=== PATIENT | male | born 1945 | race Caucasian/White ===

== ENCOUNTER 2023-09-29 16:13 | Inpatient (IN) | payer MEDICARE, SELFPAY ==
[2023-09-29] VITALS (57 sets, daily range): BP systolic 106–269; BP diastolic 58–149; PULSE 85–141; RESP 2–50; TEMP 36.4–37.4; O2SAT 71–100
--- NOTE | 2023-09-29 16:15 | DI.RAD_ITS ---
Exam(s) XR PORTABLE CHEST AP EXAM: XR PORTABLE CHEST AP CLINICAL HISTORY: SOB TECHNIQUE: 2D digital imaging was performed of the chest. One image was obtained. An AP view was ob tained. COMPARISON: CR CHEST 2 VIEWS PA,LAT from 07/26/2011 FINDINGS: MEDIASTINUM: Normal. HEART: Normal. PULMONARY VASCULATURE: Normal. LUNGS: The lungs appear hyperinflated suggesting underlying COPD. Bilateral interstitial infiltrates are seen in the left perihilar region and the right lung base. PLEURAL SPACE: No pleural effusion or pneumothorax. BONE:Within normal limits for the patient's age. There is a right convex curvature of the spine. OTHER FINDINGS:Normal. IMPRESSION: 1. COPD. 2. Bilateral interstitial infiltrates in the lungs. Differential considerations include scarring, at electasis or pneumonia. Please correlate clinically. DATA REPOSITORY: RADIATION DOSE DELIVERED:
--- NOTE | 2023-09-29 16:15 | RT.EKG_ITS ---
APPROVED REPORT Exam: Resting ECG Reason for Exam: Dyspnea Patient Location: E HR:105 bpm ECG Measurements Heart Rate 105 AXIS ND 163 P 90 QRSd 90 QRS -90 QT 371 T [id number] QTc 485 Conclusion Sinus tachycardia [address] changes no stemi
[2023-09-29] MEDS: Albuterol/Ipratropium 3 ML UPD VIAL UPD ×4 (16:31→23:34)
[2023-09-29] MEDS: methylPREDNISolone SUCC 125 MG VIAL IVP (16:36)
[2023-09-29 16:44] LABS: BE (Venous) 11 mmol/L (-2-3); HCO3 (Venous) 37 mmol/L (23-28); O2 Sat (Venous) 75 %; TCO2 (Venous) 33 mmol/L (24-29); pH (Venous) 7.31 (7.31-7.41); pO2 (Venous) 46 mmHg
[2023-09-29 16:45] LABS: Abs Immature Grans 0.02 10^3/uL (0.0-0.06); Absolute Basophil Count 0.03 10^3/uL (0.0-0.2); Absolute Eosinophil Count 0.04 10^3/uL (0.0-0.7); Absolute Lymphocyte Count 0.72 10^3/uL (1.2-3.4); Absolute Monocyte Count 0.54 10^3/uL (0.1-0.8); Basophils % 0.3 %; Eosinophils % 0.4 %; HCT 53.9 % (40.0-50.0); HGB 17.3 g/dL (13.5-17.5); Immature Grans % 0.2 %; Lymphocytes % 7.4 %; MCH 29.8 pg (27.0-33.0); MCHC 32.1 % (32.0-36.0); MCV 93 fL (80-95); MPV 10.4 fL (8.0-11.0); Monocytes % 5.5 %; Neutrophils % 86.2 %; Platelet Count 255 10^3/uL (130-400); RBC 5.81 10^6/uL (4.36-5.78); RDW 13.4 % (11.8-14.1); RDW-SD 45.4 fL; WBC 9.75 10^3/uL (4.4-10.8)
--- NOTE | 2023-09-29 16:45 | RT.EKG_ITS ---
APPROVED REPORT Exam: Resting ECG Reason for Exam: SOB Patient Location: E HR:119 bpm ECG Measurements Heart Rate 119 AXIS MO 154 P 84 QRSd 107 QRS -85 QT 355 T 93 QTc 502 Conclusion Sinus tachycardia no stemi
[2023-09-29 16:46] LABS: pCO2 (Venous) 75 mmHg (41-51)
[2023-09-29] MEDS: MAGNESIUM SULFATE 2 GM/50 ML BAG IVINF (17:07)
[2023-09-29] MEDS: Albuterol/Ipratropium 3 ML UPD VIAL 9 ML UPD (17:10)
[2023-09-29 17:11] LABS: ALT 47 U/L (16-63); AST 25 U/L (15-37); Albumin 3.5 g/dL (3.4-5.0); Alkaline Phosphatase 58 U/L (46-116); Anion Gap 4.6 mmol/L (3-11); BUN 26 mg/dL (7-18); Bilirubin, Total 0.9 mg/dL (0.2-1.0); CO2 37.4 mmol/L (21.0-32.0); CREATININE 0.9 mg/dL (0.70-1.30); Calcium 9.2 mg/dL (8.5-10.1); Chloride 104 mmol/L (98-107); Estimated GFR 87.42 (mL/min/1.73m2); Glucose 133 mg/dL (74-106); Magnesium 2.3 mg/dL (1.8-2.4); NT-proBNP 2305 pg/mL (<300); Potassium 3.9 mmol/L (3.5-5.1); Sodium 146 mmol/L (136-145); Total Protein 7.3 g/dL (6.4-8.2); Troponin I < 50 ng/L (< or =60)
[2023-09-29] MEDS: LORazepam 2 MG/ML VIAL 1 MG IVP ×2 (17:17→23:52)
[2023-09-29 17:33] LABS: COVID-19 PCR Negative (Negative); Influenza A PCR Negative (Negative); Influenza B PCR Negative (Negative); RSV PCR Negative (Negative)
[2023-09-29 17:36] LABS: Source Nasopharynx
[2023-09-29 17:45] LABS: BE (Venous) 7 mmol/L (-2-3); HCO3 (Venous) 34 mmol/L (23-28); O2 Sat (Venous) 89 %; TCO2 (Venous) 30 mmol/L (24-29); pH (Venous) 7.24 (7.31-7.41); pO2 (Venous) 68 mmHg
[2023-09-29 17:48] LABS: pCO2 (Venous) 79 mmHg (41-51)
[2023-09-29] MEDS: DOXYCYCLINE 100 MG in Normal Saline 100 ML IVPB (17:54)
[2023-09-29 18:18] LABS: Procalcitonin < 0.1 ng/mL
--- NOTE | 2023-09-29 18:44 | HPE_ITS ---
Date of service: 09/29/23 Time of Service: 18:51 Assessment and Plan Assessment and plan (1) Acute exacerbation of chronic obstructive pulmonary disease (COPD): Status: Acute Assessment and plan: - Patient presented with severe shortness of breath found to have acute on chronic respiratory failure with hypoxia and hypercapnia due to an acute exacerbation of COPD -He was given nebulizer treatments, IV magnesium, IV Solu-Medrol and placed on BiPAP in the emergency department -continue prednisone 40 mg daily -Scheduled DuoNebs every 6 hours with every 2 hours as needed albuterol -Patient had improvement with IV Ativan and will continue on 1 mg every 4 hours for anxiety/work of breathing/shortness of breath -continue BiPAP therapy overnight -repeat VBG in the morning and assess if patient continues to require BiPAP (2) Acute on chronic respiratory failure with hypoxia and hypercapnia: Status: Acute Assessment and plan: - As noted above (3) Underweight: Status: Acute Assessment and plan: - May be secondary to end-stage COPD -Recommend nutrition consult for evaluation of possible protein calorie malnutrition History of Present Illness History of Present Illness Chief Complaint: SOB Narrative: 78-year-old male with past medical history of severe COPD who presents emergency department complaints of shortness of breath. According to the patient and his patient has been in his usual state of health but few days ago began to experience progressively worsening shortness of breath despite using his home inhalers and nebulizer treatments which prompted him to present to the emergency department today. He denies any lightheadedness, dizziness, chest pain, recent fevers, changes in sputum, nausea vomiting or diarrhea. In the emergency department the patient presented in severe respiratory distress with a respiratory rate in the 50's, oxygen saturation in the low 70s, and heart rate in the 120s. Patient had a VBG which showed significant acute on chronic respiratory acidosis with a pH of 7.31 and CO2 of 75 with a bicarb of 37 for which the patient was placed on BiPAP. He was also given multiple nebulizer treatments, 125 mg of IV Solu-Medrol, IV magnesium as well as Ativan which overall significantly improved his respiratory rate. Chest x-ray showed possible bilateral lower lobe infiltrates though procalcitonin was negative and emergency room physician did administer IV doxycycline. At which time emergency room physician paged hospitalist for admission for patient with acute on chronic hypercapnic hypoxic respiratory failure secondary to acute exacerbation of COPD. Review of Systems All systems reviewed & are unremarkable except as noted in HPI and below PFSH All Active Problems (Updated 09/29/23 @ 21:31 by Brendan Crane MD) Acute on chronic respiratory failure with hypoxia and hypercapnia (Acute) Acute exacerbation of chronic obstructive pulmonary disease (COPD) (Acute) Adrenal adenoma (Acute) COPD (chronic obstructive pulmonary disease) (Chronic) Sudden hearing loss (Acute) Hypertensive disorder (Chronic) Underweight (Acute) Constipation (Acute) Social History Smoking/Tobacco Use Status: Never Smoking risk assessment performed?: Yes Alcohol Intake: current Alcohol Intake frequency: holidays/special occasions only Substance use type: does not use Housing: house Meds Allergies and Home Medications Allergies Allergy/AdvReac Type Severity Reaction Status Date / Time amiodarone Allergy Unknown Other (See Verified 09/29/23 16:27 Comment) Home Medications Medication Instructions Recorded Confirmed Type fluticasone 250 mcg-salmeterol 50 1 inh inhalation BID 01/27/23 09/29/23 History mcg/dose blistr powdr for inhalation (Advair Diskus) inhalational spacing device 01/27/23 History (Aerochamber MV spacer) levalbuterol tartrate 45 2 inh inhalation Q6H 01/27/23 09/29/23 History mcg/actuation aerosol inhaler (Xopenex HFA) umeclidinium 62.5 mcg/actuation 1 inh inhalation DAILY 01/27/23 09/29/23 History blister powder for inhalation (Incruse Ellipta) Exam Narrative Exam Narrative: Chronically ill cachectic appearing older gentleman laying in bed and mild respiratory distress, BiPAP mask on, ANO x 4, heart mildly tachycardic with rates in the 100s, regular rhythm, lungs with diffuse wheezing heard throughout bilateral lung banegas, abdomen soft, nontender, nondistended Results Labs 09/30/23 05:39 09/30/23 05:39 Labs: Laboratory Results - last 24 hr 09/29/23 09/29/23 09/29/23 16:35 16:40 16:51 WBC 9.75 RBC 5.81 H Hgb 17.3 Hct 53.9 H MCV 93 MCH 29.8 MCHC 32.1 RDW 13.4 Plt Count 255 MPV 10.4 Immature Gran % 0.2 Neutrophils % 86.2 Lymphocytes % 7.4 Monocytes % 5.5 Eosinophils % 0.4 Basophils % 0.3 Nucleated RBC % 0.0 Absolute Neutrophils 8.40 H Absolute Lymphocytes 0.72 L Absolute Monocytes 0.54 Absolute Eosinophils 0.04 Absolute Basophils 0.03 VBG pH 7.31 VBG pCO2 75 H* VBG pO2 46 VBG HCO3 37 H VBG Total CO2 33 H VBG O2 Saturation 75 VBG Base Excess 11 H Sodium 146 H Potassium 3.9 Chloride 104 Carbon Dioxide 37.4 H Anion Gap 4.6 BUN 26 H Creatinine 0.9 Est GFR (CKD-EPI 2020) 87.42 Glucose 133 H Calcium 9.2 Magnesium 2.3 Total Bilirubin 0.9 AST 25 ALT 47 Alkaline Phosphatase 58 Troponin I < 50 NT-Pro-B Natriuret Pep 2305 H Total Protein 7.3 Albumin 3.5 Procalcitonin COVID-19 Source Cancelled Nasopharynx SARS-CoV-2 (PCR) Cancelled Negative Influenza Type A (PCR) Cancelled Negative Influenza Type B (PCR) Cancelled Negative RSV (PCR) Cancelled Negative 09/29/23 17:38 WBC RBC Hgb Hct MCV MCH MCHC RDW Plt Count MPV Immature Gran % Neutrophils % Lymphocytes % Monocytes % Eosinophils % Basophils % Nucleated RBC % Absolute Neutrophils Absolute Lymphocytes Absolute Monocytes Absolute Eosinophils Absolute Basophils VBG pH 7.24 L VBG pCO2 79 H* VBG pO2 68 VBG HCO3 34 H VBG Total CO2 30 H VBG O2 Saturation 89 VBG Base Excess 7 H Sodium Potassium Chloride Carbon Dioxide Anion Gap BUN Creatinine Est GFR (CKD-EPI 2020) Glucose Calcium Magnesium Total Bilirubin AST ALT Alkaline Phosphatase Troponin I NT-Pro-B Natriuret Pep Total Protein Albumin Procalcitonin < 0.1 COVID-19 Source SARS-CoV-2 (PCR) Influenza Type A (PCR) Influenza Type B (PCR) RSV (PCR) Last Vital Signs Pulse 121 H 09/29/23 17:52 Resp 25 H 09/29/23 17:52 BP 168/98 H 09/29/23 17:17 Pulse Ox 93 09/29/23 17:52 Time Spent Time spent with Patient: >75 minutes Time was spent: preparing to see the patient(eg.review tests), obtaining and/or reviewing separately otained hiistory, ordering medications,tests, procedures, referring, communicating with other health director of health care marketing, indepentently interpreting results, counseling the patient and care coordination
--- NOTE | 2023-09-29 20:45 | W.ED.GENAD ---
Discharge Plan Disposition Patient Disposition: Admit to [facility] Condition: Poor Discharge Details Chief Complaint: SOB/SuddenOnset Clinical Impression: Acute exacerbation of chronic obstructive pulmonary disease (COPD), Underweight, Acute on chronic respiratory failure with hypoxia and hypercapnia Admit Date/Time: 09/29/23 18:44 Admit Provider: Raffi Moya Attending Provider: Raffi Moya Primary Care Provider: DOROTHY DE OLIVEIRA ED Provider: Brendan Crane Discharge Data Discharge Date/Time-TO BE ENTERED AT DEPARTURE: 09/29/23 20:40 HPI General Date/Time Provider Initiated Documentation: 09/29/23 16:25. Limitations to Documentation: physical limitation. Information obtained by: patient and family. HPI Narrative: 78-year-old gentleman with past medical history of COPD and hypertension presents for evaluation of difficulty breathing. Patient is unable to provide history secondary to severe respiratory distress. His reports that he has always had COPD. They are trying to get him home oxygen, but he has not had his pulmonology appointment yet. She reports that over the last week he got a cold and has been having some congestion and this is worsening his breathing symptoms. She states that he does not want to be intubated and would not want CPR. Related Data Home Medications Medication Instructions Recorded Confirmed fluticasone 250 mcg-salmeterol 50 1 inh inhalation BID 01/27/23 09/29/23 mcg/dose blistr powdr for inhalation (Advair Diskus) inhalational spacing device 01/27/23 (Aerochamber MV spacer) levalbuterol tartrate 45 2 inh inhalation Q6H 01/27/23 09/29/23 mcg/actuation aerosol inhaler (Xopenex HFA) umeclidinium 62.5 mcg/actuation 1 inh inhalation DAILY 01/27/23 09/29/23 blister powder for inhalation (Incruse Ellipta) Allergies Allergy/AdvReac Type Severity Reaction Status Date / Time amiodarone Allergy Unknown Other (See Verified 09/29/23 16:27 Comment) General Stated Complaint: SOB/SuddenOnset LILY: 2 Exam Narrative Exam Narrative: Review of Systems: All systems reviewed & are unremarkable except as noted in HPI and below cachetic, ill appearing +severe respiratory distress, tripodding NCAT PERRL, normal conjunctiva tachycardic Severe respiratory distress with tripoding, accessory muscle use, oxygen saturations in the 70s, minimal air movement Nondistended abdomen Extremities w/o deformity, no cyanosis, no edema No rashes or lesions. no focal neurologic deficits Appropriate mood and affect Course Vital Signs Vital signs: Vital Signs Pulse 112 H 09/29/23 16:20 Respiratory Rate 50 H 09/29/23 16:20 Blood Pressure 186/102 H 09/29/23 16:20 Pulse Oximetry 71 L 09/29/23 16:20 Pulse 97 H 09/29/23 19:37 Pulse 101 H 09/29/23 19:20 Respiratory Rate 26 H 09/29/23 19:37 Respiratory Effort Short of Breath 09/29/23 16:27 Respiratory Depth Deep 09/29/23 16:27 Respiratory Pattern Normal 09/29/23 16:27 Blood Pressure 155/80 H 09/29/23 19:15 Blood Pressure Mean 105 09/29/23 19:15 Blood Pressure Position Sitting 09/29/23 16:20 Pulse Oximetry 100 09/29/23 19:37 Respiratory End-tidal CO2 28 09/29/23 16:41 Oxygen Delivery Method Bi-pap 09/29/23 17:10 Oxygen Flow Rate 0 09/29/23 16:20 Fraction of Inspired Oxygen (FIO2) 30 09/29/23 19:37 Lab/Test Results Lab/Test Results: 09/29/23 18:18 Blood Blood Culture - Pending 09/29/23 18:15 Blood Blood Culture - Pending Laboratory Tests Range/Units 09/29/23 09/29/23 09/29/23 16:35 16:40 16:51 WBC (4.4-10.8) 10^3/uL 9.75 RBC (4.36-5.78) 10^6/uL 5.81 H Hgb (13.5-17.5) g/dL 17.3 Hct (40.0-50.0) % 53.9 H MCV (80-95) fL 93 MCH (27.0-33.0) pg 29.8 MCHC (32.0-36.0) % 32.1 RDW (11.8-14.1) % 13.4 Plt Count (130-400) 10^3/uL 255 MPV (8.0-11.0) fL 10.4 Immature Gran % % 0.2 Neutrophils % % 86.2 Lymphocytes % % 7.4 Monocytes % % 5.5 Eosinophils % % 0.4 Basophils % % 0.3 Nucleated RBC % (0.0-0.3) % 0.0 Absolute Neutrophils (1.2-6.7) 10^3/uL 8.40 H Absolute Lymphocytes (1.2-3.4) 10^3/uL 0.72 L Absolute Monocytes (0.1-0.8) 10^3/uL 0.54 Absolute Eosinophils (0.0-0.7) 10^3/uL 0.04 Absolute Basophils (0.0-0.2) 10^3/uL 0.03 VBG pH (7.31-7.41) 7.31 VBG pCO2 (41-51) mmHg 75 H* VBG pO2 mmHg 46 VBG HCO3 (23-28) mmol/L 37 H VBG Total CO2 (24-29) mmol/L 33 H VBG O2 Saturation % 75 VBG Base Excess (-2-3) mmol/L 11 H Sodium (136-145) mmol/L 146 H Potassium (3.5-5.1) mmol/L 3.9 Chloride (98-107) mmol/L 104 Carbon Dioxide (21.0-32.0) mmol/L 37.4 H Anion Gap (3-11) mmol/L 4.6 BUN (7-18) mg/dL 26 H Creatinine (0.70-1.30) mg/dL 0.9 Est GFR (CKD-EPI 2020) (mL/min/1.73m2) 87.42 Glucose (74-106) mg/dL 133 H Calcium (8.5-10.1) mg/dL 9.2 Magnesium (1.8-2.4) mg/dL 2.3 Total Bilirubin (0.2-1.0) mg/dL 0.9 AST (15-37) U/L 25 ALT (16-63) U/L 47 Alkaline Phosphatase (46-116) U/L 58 Troponin I (< or =60) ng/L < 50 NT-Pro-B Natriuret Pep (<300) pg/mL 2305 H Total Protein (6.4-8.2) g/dL 7.3 Albumin (3.4-5.0) g/dL 3.5 Procalcitonin ng/mL COVID-19 Source Cancelled Nasopharynx SARS-CoV-2 (PCR) Cancelled Negative Influenza Type A (PCR) Cancelled Negative Influenza Type B (PCR) Cancelled Negative RSV (PCR) Cancelled Negative Range/Units 09/29/23 17:38 WBC (4.4-10.8) 10^3/uL RBC (4.36-5.78) 10^6/uL Hgb (13.5-17.5) g/dL Hct (40.0-50.0) % MCV (80-95) fL MCH (27.0-33.0) pg MCHC (32.0-36.0) % RDW (11.8-14.1) % Plt Count (130-400) 10^3/uL MPV (8.0-11.0) fL Immature Gran % % Neutrophils % % Lymphocytes % % Monocytes % % Eosinophils % % Basophils % % Nucleated RBC % (0.0-0.3) % Absolute Neutrophils (1.2-6.7) 10^3/uL Absolute Lymphocytes (1.2-3.4) 10^3/uL Absolute Monocytes (0.1-0.8) 10^3/uL Absolute Eosinophils (0.0-0.7) 10^3/uL Absolute Basophils (0.0-0.2) 10^3/uL VBG pH (7.31-7.41) 7.24 L VBG pCO2 (41-51) mmHg 79 H* VBG pO2 mmHg 68 VBG HCO3 (23-28) mmol/L 34 H VBG Total CO2 (24-29) mmol/L 30 H VBG O2 Saturation % 89 VBG Base Excess (-2-3) mmol/L 7 H Sodium (136-145) mmol/L Potassium (3.5-5.1) mmol/L Chloride (98-107) mmol/L Carbon Dioxide (21.0-32.0) mmol/L Anion Gap (3-11) mmol/L BUN (7-18) mg/dL Creatinine (0.70-1.30) mg/dL Est GFR (CKD-EPI 2020) (mL/min/1.73m2) Glucose (74-106) mg/dL Calcium (8.5-10.1) mg/dL Magnesium (1.8-2.4) mg/dL Total Bilirubin (0.2-1.0) mg/dL AST (15-37) U/L ALT (16-63) U/L Alkaline Phosphatase (46-116) U/L Troponin I (< or =60) ng/L NT-Pro-B Natriuret Pep (<300) pg/mL Total Protein (6.4-8.2) g/dL Albumin (3.4-5.0) g/dL Procalcitonin ng/mL < 0.1 COVID-19 Source SARS-CoV-2 (PCR) Influenza Type A (PCR) Influenza Type B (PCR) RSV (PCR) Medical Decision Making Evaluation of acute severe respiratory distress. Patient has a history of COPD, is not on home oxygen as it is not available to him at this time. He is unable to provide any history, but is at bedside and states that symptoms have been worsening over the last few days. On initial presentation the does confirm that he is DNR/DNI. He is significantly hypoxic and having severe increased work of breathing. Patient was started on bronchodilator therapy and quickly transitioned to BiPAP to support his ventilatory effort. His oxygen saturation responds quickly to FiO2. Patient was given steroids and magnesium. He was given 1 mg of Ativan to go make him more comfortable on the BiPAP and this did seem to make a significant difference and improvement in his work of breathing. Chest x-ray reveals hyperinflated lungs without any focal consolidation. Read is concerning for possible infiltrate. Though he has no leukocytosis and his procalcitonin is negative. Out of abundance of caution and the severity of disease, cultures were ordered and a dose of doxycycline was given. His VBG is concerning for some acidosis and hypercapnia. His BNP is elevated though he does not have any signs of volume overload. There is no prior echo in the system. Patient has intermittent episodes of desaturation which required the 2-minute pulse of 100% FiO2. This quickly returned his oxygen level to appropriate. At this time the patient is not ready to wean from BiPAP.. Discussed with hospitalist, the patient will be admitted to her service for further management. Medical Records Medical records reviewed: Yes I reviewed the patient's medical records. Lab Data Lab results reviewed: Yes I reviewed the patient's lab results. Quality:SDOH Health Related Social Needs: Health related social needs risk of homeless, inadequate housing, transpo insecurity, personal safety Health related social needs details difficulty getting to appts Critical Care Time Critical Care Time Critical Care Time: Yes Total Critical Care Time: 40 Attestation: CRITICAL CARE Upon my evaluation, this patient had a high probability of imminent or life-threatening deterioration due to respiratory failure which required my direct attention, intervention, and personal management. I have personally provided 40 minutes of critical care time exclusive of time spent on separately billable procedures. Time includes review of laboratory data, radiology results, discussion with consultants, and monitoring for potential decompensation. Interventions were performed as documented above [facility] All Active Problems (Updated 09/29/23 @ 21:31 by Brendan Crane MD) Acute on chronic respiratory failure with hypoxia and hypercapnia (Acute) Acute exacerbation of chronic obstructive pulmonary disease (COPD) (Acute) Adrenal adenoma (Acute) COPD (chronic obstructive pulmonary disease) (Chronic) Sudden hearing loss (Acute) Hypertensive disorder (Chronic) Underweight (Acute) Constipation (Acute) Social History Smoking/Tobacco Use Status: Never Smoking risk assessment performed?: Yes Alcohol Intake: current Alcohol Intake frequency: holidays/special occasions only Substance use type: does not use Housing: house
[2023-09-29] MEDS: Normal Saline Flush 10 ML SYR IVP (22:10)
[2023-09-30] VITALS (135 sets, daily range): BP systolic 100–175; BP diastolic 54–105; PULSE 73–122; RESP 2–32; TEMP 36.8–37.1; O2SAT 86–99
[2023-09-30 02:18] LABS: BE (Venous) 10 mmol/L (-2-3); HCO3 (Venous) 35 mmol/L (23-28); O2 Sat (Venous) 74 %; TCO2 (Venous) 31 mmol/L (24-29); pH (Venous) 7.35 (7.31-7.41); pO2 (Venous) 41 mmHg
[2023-09-30 02:19] LABS: pCO2 (Venous) 64 mmHg (41-51)
[2023-09-30] MEDS: Albuterol/Ipratropium 3 ML UPD VIAL UPD ×3 (05:12→17:05)
[2023-09-30] MEDS: LORazepam 2 MG/ML VIAL 1 MG IVP ×2 (05:15→22:09)
[2023-09-30 05:48] LABS: HGB 15.3 g/dL (13.5-17.5); MCH 29.8 pg (27.0-33.0); MCHC 31.9 % (32.0-36.0); MCV 93 fL (80-95); MPV 10.5 fL (8.0-11.0); Platelet Count 211 10^3/uL (130-400); RBC 5.14 10^6/uL (4.36-5.78); RDW 13.3 % (11.8-14.1); RDW-SD 45.6 fL; WBC 5.95 10^3/uL (4.4-10.8)
[2023-09-30 05:59] LABS: Anion Gap 5.6 mmol/L (3-11); BUN 30 mg/dL (7-18); CO2 34.4 mmol/L (21.0-32.0); CREATININE 0.7 mg/dL (0.70-1.30); Calcium 8.8 mg/dL (8.5-10.1); Chloride 105 mmol/L (98-107); Estimated GFR 94.31 (mL/min/1.73m2); Glucose 131 mg/dL (74-106); Potassium 4.2 mmol/L (3.5-5.1); Sodium 145 mmol/L (136-145)
[2023-09-30] MEDS: methylPREDNISolone SUCC 125 MG VIAL 60 MG IVP ×2 (09:14→16:53)
[2023-09-30] MEDS: Normal Saline Flush 10 ML SYR IVP ×2 (09:15→21:11)
[2023-09-30] MEDS: Enoxaparin 30 MG/0.3 ML SYR SC (09:15)
--- NOTE | 2023-09-30 09:55 | PDOC.CMIN ---
Date of service: 09/30/23 Time of Service: 09:56 Care Management Initial Assmt Initial Assessment REASON FOR HOSPITALIZATION:: acute on chronic hypercapnic respiratory failure PREVIOUS FUNCTIONAL STATUS/SOCIAL/FAMILY SUPPORTS:: Jimmy lives in [facility] with his , Myesha. 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 Iggy is originally from [place], but moved to [place] in the . He is independent with ADLs at baseline, although his health has been declining slowly over the years. CURRENT FUNCTIONAL STATUS:: Iggy was lying in bed, wearing a Bipap mask when CM met with him and his , Myesha, who was in the room visiting. Iggy was unable to participate in conversation, due to his oxygen need, but was agreeable to CM talking with Myesha in the room. Myesha stated that she has been caring for Iggy at home, but until recently he has been independent. She stated that he has had COPD for 14 years, but it wasn't until this most recent illness that he needed more support. Myesha stated that per MD, the plan will be to medically manage Iggy through the weekend, and then meet with Palliative care on Monday to discuss goals of care, and consider Iggy returning home with an admission to hospice. Myesha stated that she believes that this is what Iggy would want, to be home, but she will discuss it with him further today. Iggy is alert and oriented, but his communication is limited due to his need for Bipap and oxygen needs. He becomes very short of breath after just a few words. Per report, he is on IV steroids at this time, and is requiring ICU level of care. CM will continue to follow. ADVANCE DIRECTIVES:: Not on file. Has patient been provided with info about the portal/API?: Yes Did the patient sign up for the portal?: No CODE STATUS:: DNR/DNI INSURANCE COVERAGE / FINANCIAL ISSUES:: MCR A&B CURRENT HOME/COMMUNITY SERVICES/EQUIPMENT:: None PRIMARY CARE PHYSICIAN:: Rhonda Auguste POTENTIAL DISCHARGE NEEDS:: Evaluations for further needs; possible new home O2, HH services vs hospice at home. PATIENT/FAMILY EDUCATION NEEDS:: Review discharge instructions and limitations, discussion of self care needs including ask me three. ANTICIPATED BARRIERS TO DISCHARGE:: May need more services/support at home prior to discharge TRANSPORTATION:: Via private vehicle by his PLAN:: Anticipate Jimmy will return home with new orders for HH services vs an admission to hospice. He may require new home O2, coordinated by RT vs hospice, depending on his disposition. He will be transported home via private vehicle by his . He will follow up with his PCP and discharge plan of care. CM will continue to follow. PFSH All Active Problems (Updated 09/29/23 @ 21:31 by Brendan Crane MD) Acute on chronic respiratory failure with hypoxia and hypercapnia (Acute) Acute exacerbation of chronic obstructive pulmonary disease (COPD) (Acute) Adrenal adenoma (Acute) COPD (chronic obstructive pulmonary disease) (Chronic) Sudden hearing loss (Acute) Hypertensive disorder (Chronic) Underweight (Acute) Constipation (Acute) Social History Smoking/Tobacco Use Status: Never Smoking risk assessment performed?: Yes Alcohol Intake: current Alcohol Intake frequency: holidays/special occasions only Substance use type: does not use Housing: house SDOH(Care Management) Screening Will the Patient Participate in the Screening?: Yes Do you worry about having a steady place to live?: yes Problems where you live: inadequate lighting In the past 12 months, have you had to go without electric, gas, oil or water in your home?: no Have you or anyone in your house had to go without enough food to eat?: no Has lack of transportation kept you from medical appointments or from doing things needed for daily living?: yes Has anyone in your support network made you feel unsafe for any reason?: yes Social Determinants of Health Comments(SDOH Details): medical appts, home health help and palliative consults and hospice care in future Health Related Social Needs Health related social needs: inadequate housing(Z59.1), housing instability, housed, with risk of homelessness(Z59.811), transportation insecurity(Z59.82) and problem related to primary support group(Z63.9) Health related social needs details: difficulty getting to appts Anticipated HH Services Anticipated HH Services at Discharge [facility] Needed, DATA COMMUNICATIONS ANALYST, OT, PT and RN. Following Provider: Rhonda Auguste.
--- NOTE | 2023-09-30 10:41 | PGE_ITS ---
Date of Service Date of service: 09/30/23 Time of Service: 10:41 Assessment and Plan Assessment and plan (1) Acute exacerbation of chronic obstructive pulmonary disease (COPD): Status: Acute Assessment and plan: -Patient presented with severe shortness of breath found to have acute on chronic respiratory failure with hypoxia and hypercapnia due to an acute exacerbation of COPD -He was given nebulizer treatments, IV magnesium, IV Solu-Medrol and placed on BiPAP in the emergency department -Scheduled DuoNebs every 6 hours with every 2 hours as needed albuterol -Patient had improvement with IV Ativan and will continue on 1 mg every 4 hours for anxiety/work of breathing/shortness of breath, but ativan supply is low so will try morphine. -repeat VBG this improved hypercapnia 79->64 and pH normalized, but continues to require BiPAP to maintain oxygenation. Will consider high flow. -Not able to take oral meds this morning, resumed Solu-Medrol. -Continue possible interstitial infection, may help COPD (2) Acute on chronic respiratory failure with hypoxia and hypercapnia: Status: Acute Assessment and plan: - As noted above. BNAP up but I don't think CHF contributing clinically, consider echocardiogram or POCUS to assess. - He confirmed DNR/DNI. He does want treatment if he can get better short of intubation. - Plan palliative consult when available Monday (3) Underweight: Status: Acute Assessment and plan: - May be secondary to end-stage COPD -Recommend nutrition consult for evaluation of possible protein calorie malnutrition Subjective Subjective Patient reports: denies diarrhea, vomiting or fever Interval history since last seen: Feels okay. Understands he has bad COPD, tolerating BiPAP now, hoping he will be able to get on just oxygen. Only pain is in the left ankle, which is not new. he wasn't able to take anything orally today. Exam Narrative Exam Narrative: GEN: cachetic, ill appearing, able to speak in short phrases on BiPAP, answers questions appropriately CV: tachycardic, regular, no murmur LUNGS: Diffusely poor air movement, less in dependant right base, no rales or wheezes. ABD: non-tender, Nondistended abdomen Extremities: w/o deformity, no cyanosis, no edema Skin: No rashes or lesions. Objective Last Vital Signs Temp 37.0 C 09/30/23 07:46 Pulse 81 09/30/23 08:07 Resp 17 09/30/23 08:07 BP 155/78 H 09/30/23 07:46 Pulse Ox 96 09/30/23 08:07 Laboratory Results - last 24 hr 09/29/23 09/29/23 09/29/23 16:35 16:40 16:51 WBC 9.75 RBC 5.81 H Hgb 17.3 Hct 53.9 H MCV 93 MCH 29.8 MCHC 32.1 RDW 13.4 Plt Count 255 MPV 10.4 Immature Gran % 0.2 Neutrophils % 86.2 Lymphocytes % 7.4 Monocytes % 5.5 Eosinophils % 0.4 Basophils % 0.3 Nucleated RBC % 0.0 Absolute Neutrophils 8.40 H Absolute Lymphocytes 0.72 L Absolute Monocytes 0.54 Absolute Eosinophils 0.04 Absolute Basophils 0.03 VBG pH 7.31 VBG pCO2 75 H* VBG pO2 46 VBG HCO3 37 H VBG Total CO2 33 H VBG O2 Saturation 75 VBG Base Excess 11 H Sodium 146 H Potassium 3.9 Chloride 104 Carbon Dioxide 37.4 H Anion Gap 4.6 BUN 26 H Creatinine 0.9 Est GFR (CKD-EPI 2020) 87.42 Glucose 133 H Calcium 9.2 Magnesium 2.3 Total Bilirubin 0.9 AST 25 ALT 47 Alkaline Phosphatase 58 Troponin I < 50 NT-Pro-B Natriuret Pep 2305 H Total Protein 7.3 Albumin 3.5 Procalcitonin COVID-19 Source Cancelled Nasopharynx SARS-CoV-2 (PCR) Cancelled Negative Influenza Type A (PCR) Cancelled Negative Influenza Type B (PCR) Cancelled Negative RSV (PCR) Cancelled Negative 09/29/23 09/30/23 09/30/23 17:38 02:03 02:10 WBC RBC Hgb Hct MCV MCH MCHC RDW Plt Count MPV Immature Gran % Neutrophils % Lymphocytes % Monocytes % Eosinophils % Basophils % Nucleated RBC % Absolute Neutrophils Absolute Lymphocytes Absolute Monocytes Absolute Eosinophils Absolute Basophils VBG pH 7.24 L Cancelled 7.35 VBG pCO2 79 H* Cancelled 64 H* VBG pO2 68 Cancelled 41 VBG HCO3 34 H Cancelled 35 H VBG Total CO2 30 H Cancelled 31 H VBG O2 Saturation 89 Cancelled 74 VBG Base Excess 7 H Cancelled 10 H Sodium Potassium Chloride Carbon Dioxide Anion Gap BUN Creatinine Est GFR (CKD-EPI 2020) Glucose Calcium Magnesium Total Bilirubin AST ALT Alkaline Phosphatase Troponin I NT-Pro-B Natriuret Pep Total Protein Albumin Procalcitonin < 0.1 COVID-19 Source SARS-CoV-2 (PCR) Influenza Type A (PCR) Influenza Type B (PCR) RSV (PCR) 09/30/23 05:39 WBC 5.95 RBC 5.14 Hgb 15.3 D Hct 48.0 MCV 93 MCH 29.8 MCHC 31.9 L RDW 13.3 Plt Count 211 MPV 10.5 Immature Gran % Neutrophils % Lymphocytes % Monocytes % Eosinophils % Basophils % Nucleated RBC % Absolute Neutrophils Absolute Lymphocytes Absolute Monocytes Absolute Eosinophils Absolute Basophils VBG pH VBG pCO2 VBG pO2 VBG HCO3 VBG Total CO2 VBG O2 Saturation VBG Base Excess Sodium 145 Potassium 4.2 Chloride 105 Carbon Dioxide 34.4 H Anion Gap 5.6 BUN 30 H Creatinine 0.7 Est GFR (CKD-EPI 2020) 94.31 Glucose 131 H Calcium 8.8 Magnesium Total Bilirubin AST ALT Alkaline Phosphatase Troponin I NT-Pro-B Natriuret Pep Total Protein Albumin Procalcitonin COVID-19 Source SARS-CoV-2 (PCR) Influenza Type A (PCR) Influenza Type B (PCR) RSV (PCR) Time Spent with Patient Time Spent with Patient: >50 minutes Time was spent: preparing to see the patient(eg.review tests), obtaining and/or reviewing separately otained hiistory, ordering medications,tests, procedures, referring, communicating with other health field care coordinator, indepentently interpreting results, counseling the patient and care coordination
[2023-09-30] MEDS: MORPHine 2 MG/ML SYR IVP ×3 (10:51→21:12)
[2023-09-30] MEDS: DOXYCYCLINE 100 MG in Normal Saline 100 ML IVPB (14:31)
[2023-09-30] MEDS: Milk of Magnesia 30 ML CUP PO (21:59)
[2023-10-01] VITALS (82 sets, daily range): BP systolic 131–180; BP diastolic 71–107; PULSE 76–100; RESP 4–24; TEMP 36.9–37; O2SAT 87–99
[2023-10-01] MEDS: methylPREDNISolone SUCC 125 MG VIAL 60 MG IVP (00:03)
[2023-10-01] MEDS: MORPHine 2 MG/ML SYR IVP ×6 (01:53→23:00)
[2023-10-01] MEDS: DOXYCYCLINE 100 MG in Normal Saline 100 ML IVPB (01:54)
[2023-10-01] MEDS: Normal Saline Flush 10 ML SYR IVP ×3 (06:29→19:16)
[2023-10-01] MEDS: Enoxaparin 30 MG/0.3 ML SYR SC (08:49)
[2023-10-01] MEDS: Pantoprazole 40 MG TABCR PO (08:49)
[2023-10-01] MEDS: predniSONE 20 MG TAB 40 MG PO (08:51)
--- NOTE | 2023-10-01 09:57 | PGE_ITS ---
Date of Service Date of service: 10/01/23 Time of Service: 09:57 Assessment and Plan Assessment and plan (1) Acute exacerbation of chronic obstructive pulmonary disease (COPD): Status: Acute Assessment and plan: change DuoNeb to qid,continue prn albuteroal, addd Spiriva, consult pulmonary service tomorrow, add acapella/vibrapep; attempt sputum culture, continue bipap at night and prn fatigue; otherwise continue NC during the day; attempt mobilization/P.T. consult; needs updated PFT once he has recovered from this acute event. Be sure his vaccines are up to date. (2) Acute on chronic respiratory failure with hypoxia and hypercapnia: Status: Acute (3) Underweight: Status: Acute Assessment and plan: involuntary weight loss, he says 10 lbs but he appears to have lost more than this. palliative and nutritional consults have been requested. I have added protein supplements. Subjective Subjective Interval history since last seen: Patient w/ moist, non-productive cough. Dyspnea is improving. Was on BIPAP yesterday but has been on NC overnight. Now on 1 lpm. Not dyspneic at rest but still gets dyspneic w/ any activity. Also notes some intermittent epigastric discomfort w/ meals. He gives hx of worsening dyspneic, cough and fevers to 101 that preceded his hospitalization by several days. He has been afebrile t hroughout this hospitalization an has had no leukocytosis. So far he has not been able to produce any sputum. I have ordered Acapella/Vibrapep. He has been on solumedrol (which I have switched to prednisone) and he is on Duoneb q6hr and albuterol q2h prn. He has not been on home oxygen. He has not seen pulmonary as outpatient but states that he had been scheduled to see Dr. Mora but became ill and was hospitalized before he could see ehr. Exam Narrative Exam Narrative: Very thin, elderly white male, sitting up in bed, attempting to eat breakfast, moist cough but not able to mobilized anything LUngs: diffusely diminished breath sounds w/ prolonged expiratory phase, no rhonchi or wheezing Heart: RRR, no murmur or rub Abdomen: scaphoid, soft, nontender Extremities: no cyanosis or edema, feet warm and dry, promient callous over right lateral 5th metatarsal but no open ulcer; pedal pulses present Objective Last Vital Signs Temp 37.0 C 10/01/23 08:25 Pulse 80 10/01/23 08:01 Resp 21 10/01/23 09:50 BP 152/87 H 10/01/23 08:01 Pulse Ox 90 L 10/01/23 09:50 Time Spent with Patient Time Spent with Patient: 35-49 minutes Time was spent: preparing to see the patient(eg.review tests), ordering medications,tests, procedures, referring, communicating with other health neonatal critical care nurse, indepentently interpreting results, counseling the patient and care coordination
[2023-10-01] MEDS: Azithromycin 250 MG TAB 500 MG PO (10:57)
--- NOTE | 2023-10-01 11:30 | DI.CT_ITS ---
Exam(s) CT CHEST WO EXAM: CT CHEST WO CLINICAL HISTORY: COPD. TECHNIQUE: Imaging protocol: Axial computed tomography images were obtained and coronal and sagittal reformatted images were created and reviewed. COMPARISON: CT CHEST WITH CONTRAST from 03/31/2010 CR XR PORTABLE CHEST AP from 09/29/2023 FINDINGS: The examination is limited due to patient motion artifact. Tracheobronchial tree: There are mild bronchiectatic changes in the right lower lobe. There is mild bronchial wall thickening seen in the right lower lobe. Pulmonary parenchyma: There are marked centrilobular emphysematous changes present. There is scarrin g in the lung apices particularly on the right. There is an opacity in the dependent portion of the right lower lobe. Mediastinum and Iqra: No dominant adenopathy or fluid collection. The esophagus is unremarkable.In th e lower medial aspect of the right hemithorax, there is a fluid attenuation lesion measuring 4.0 x 2. 4 by 5 cm. This was not present on prior examinations. Thyroid gland: Unremarkable. Pleura: There is a small right pleural effusion and a small left pleural effusion. No pneumothorax. Heart: The heart is not dilated. Coronary artery calcification is present. There is a question of a small pericardial effusion versus motion artifact. Aorta: Thoracic aorta non-dilated. Atherosclerotic calcification is present. Upper abdomen: Left nephrolithiasis. There is again seen a hypodense right adrenal nodule likely re flecting an adenoma. Lymph nodes: Within normal limits. Soft tissues: Unremarkable. Bones:Within normal limits for the patient's age. IMPRESSION: 1. Severe emphysematous changes in the lungs. Right lower lobe bronchiectasis. 2. Infiltrate in the right lung base which may represent atelectasis or pneumonia. 3. Small bilateral pleural effusions. 4. 4.0 x 2.4 x 5 cm fluid attenuation lesion in the medial aspect of the right hemithorax. This may represent a mediastinal cyst. Abscess or loculated pleural effusion cannot be excluded. RADIATION DOSE DELIVERED: 363.77mGy.cm Total DLP 363.77mGy.cm Total DLP DATA REPOSITORY: All CT scans at this facility are submitted to the National Radiology Data Registry (NRDR) Dose Index Registry (DIR) with the [employer] (ACR). RADIATION OPTIMIZATION: All CT scans at this facility use at least one of these dose optimization te chniques: automated exposure control; mA and/or kV adjustment per patient size (includes targeted exa ms where dose is matched to clinical indication); or iterative reconstruction.
[2023-10-01] MEDS: Albuterol/Ipratropium 3 ML UPD VIAL UPD (11:46)
--- NOTE | 2023-10-01 14:22 | DI.VRAD_ITS ---
PROCEDURE INFORMATION: Exam: CT Chest Without Contrast; Diagnostic Exam date and time: 10/01/2023 12:51 PM Age: 78 years old Clinical indication: Other: Copd TECHNIQUE: Imaging protocol: Diagnostic computed tomography of the chest without contrast. 3D rendering (Not supervised by radiologist): MIP and/or 3D reconstructed images were created by the technologist. COMPARISON: CR XR PORTABLE CHEST AP 09/29/2023 4:50 PM FINDINGS: Thyroid: The thyroid gland is normal. Lungs: Severe centrilobular emphysema. There is bronchiectasis in the right. There is likely mucous plugging resulting in peripheral atelectasis of the right costophrenic angle. Pleural spaces: Unremarkable. No pneumothorax. No pleural effusion. Heart: No cardiomegaly or pericardial effusion. There are coronary artery calcifications. Mediastinal space: The right costovertebral angle in the mediastinum has an ovoid slightly decreased attenuation well-circumscribed area measuring 5.0 cm craniocaudally and up to 2.8 cm in diameter. This may be a cyst within the mediastinum. Further characterization could be made with CT or MRI examination. Lymph nodes: Unremarkable. No enlarged lymph nodes. Vasculature: No aneurysm. Moderate amount of calcification within the wall of the aorta. Bones/joints: No acute fracture. Mild degenerative changes of the spine. No spondylolisthesis. Pectus excavatum defect. Soft tissues: Unremarkable. IMPRESSION: 1. Severe centrilobular emphysema. Minimal bronchiectasis in the right lower with probable mucous plugging and postobstructive atelectasis of the costophrenic angle. 2. 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 Dictated and Authenticated by: Farshad Aguilar MD. Ordering:[facility] Piotr Raines MD
[2023-10-01] MEDS: diazePAM 10 MG/2 ML SYR 2 MG IVP ×2 (15:42→19:15)
[2023-10-01] MEDS: Budesonide/Formoterol 160/4.5 6 GM 60 PUFF INH IH (19:40)
[2023-10-02] VITALS (33 sets, daily range): BP systolic 127–168; BP diastolic 84–108; PULSE 64–86; RESP 2–19; TEMP 36.4–37.1; O2SAT 89–100
[2023-10-02] MEDS: diazePAM 10 MG/2 ML SYR 2 MG IVP ×5 (00:27→23:15)
[2023-10-02] MEDS: Normal Saline Flush 10 ML SYR IVP ×9 (00:27→23:18)
[2023-10-02] MEDS: MORPHine 2 MG/ML SYR IVP ×6 (02:51→22:08)
[2023-10-02] MEDS: Albuterol 2.5 MG/3 ML INH SOLN VIAL UPD (02:52)
--- NOTE | 2023-10-02 07:30 | W.PULMCON ---
General Date Of Service Date of service: 10/02/23 Time of Service: 07:30 Reason for Consult: COPD Exacerbation Assessment and Plan Assessment and plan (1) Acute on chronic respiratory failure with hypoxia and hypercapnia: Status: Acute (2) Acute exacerbation of chronic obstructive pulmonary disease (COPD): Status: Acute (3) Pulmonary cachexia due to COPD: Status: Acute Assessment and plan: This is a 78 yo admitted for a COPD exacerbation. At home he is maintained on Advair and Incruse, which he can be discharged on as well. I do recommend he be discharged with a nebulizer with levalbuterol-ipatropium q4hrs prn. Given his lack of smoking and no known inhalational exposures, I do recommend an alpha [address] CT is signficiant for apically predominant bullous emphysema. I recommend against further BiPAP usage to ensure he tolerates 24 hours without this therapy prior to D/C. I will see him in follow up and reassess his need for NIV as an outpatient, given the hypercapnea. COPD Exacerbation - prednisone taper: 40mg for 5 days, 30mg for 3 days, 20mg for 3 days, 10mg for 3 days, 5mg for 3 days - azithromycin for 5 days - discharge on home Advair and Incruse - discharge on prn levalbuterol - discharge with levalbuterol-ipatropium nebs and machine - pulmonary follow up to be arranges - alpha 1 anti-trypsan level given insignificant smoking history Acute hypoxic and hypercapnic respiratory failure - stop BiPAP - assess stability on nasal cannula for 24 hours - will reassess NIV need as an outpatient - ambulatory pulse ox to determine O2 needs prior to D/C Pulmonary cachexia - will assess needs as an outpatient History of Present Illness Narrative: This is a 78 yo admitted for a COPD exacerbation. He present with hypoxic and hypercapnic respiratory failure and has been treated with nebs, azithromycin, prednisone, O2 and BiPAP. It does appear as though he is a chronic CO2 retainer. He is feeling better than when he initially presented. He has prior PFT's from 2010 which find very severe airflow obstruction: Spirometry Date FEV1/FVC LLN FEV1 % LLN FVC % LLN Comments 05/27/2010 26 63 0.82 21 3.22 3.17 61 4.31 No BD Date TLC % LLN RV % DLCO LLN sGaw % Pressures 05/27/10 6.22 82 6.09 3.23 130 11.19 29.10 0.08 41 He has a insignificant smoking history and denies any respiratory exposures. 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 He feels as though the O2 helps his breathing. Review of Systems All systems reviewed & are unremarkable except as noted in HPI and below PFSH All Active Problems (Updated 10/02/23 @ 08:46 by Sharmaine Mora MD) Pulmonary cachexia due to COPD (Acute) Acute on chronic respiratory failure with hypoxia and hypercapnia (Acute) Acute exacerbation of chronic obstructive pulmonary disease (COPD) (Acute) Adrenal adenoma (Acute) COPD (chronic obstructive pulmonary disease) (Chronic) Sudden hearing loss (Acute) Hypertensive disorder (Chronic) Underweight (Acute) Constipation (Acute) Social History Smoking/Tobacco Use Status: Never Smoking risk assessment performed?: Yes Alcohol Intake: current Alcohol Intake frequency: holidays/special occasions only Substance use type: does not use Housing: house Visit Medication and Allergies Active Medications Generic Name Dose Route Start Last Admin Trade Name Freq PRN Reason Stop Dose Admin Acetaminophen 0 mg 09/29/23 21:24 Acetaminophen 325 Mg Tab PO Q4H PRN PRN Albuterol Sulfate 2.5 mg 09/29/23 21:24 10/02/23 02:52 Albuterol 2.5 Mg/3 Ml Inh Soln Vial UPD 2.5 mg Q2H PRN PRN Administration Albuterol/Ipratropium 3 ml 10/01/23 11:44 10/01/23 11:46 Albuterol/Ipratropium 3 Ml Upd Vial UPD 3 ml Q4H PRN PRN Administration Azithromycin 250 mg 10/02/23 08:30 Azithromycin 250 Mg Tab PO DAILY TAMIKO Budesonide/Formoterol Fumarate 2 puff 10/01/23 20:00 10/01/23 19:40 Budesonide/Formoterol 160/4.5 6 Gm 60 Puff Inh IH 2 puffs BID TAMIKO Administration Diazepam 2 mg 10/01/23 14:41 10/02/23 00:27 Diazepam 10 Mg/2 Ml Syr IVP 2 mg Q4H PRN PRN Administration Docusate Sodium 100 mg 09/29/23 21:24 Docusate Sodium 100 Mg Cap PO TID PRN PRN Enoxaparin Sodium 30 mg 09/30/23 08:30 10/01/23 08:49 Enoxaparin 30 Mg/0.3 Ml Syr SC 30 mg DAILY TAMIKO Administration IV Miscellaneous Supplies 1 each 09/29/23 16:30 Iv Access-Emergency Dept IV DIRECTED TAMIKO Lorazepam 1 mg 09/29/23 21:24 09/30/23 22:09 Lorazepam 2 Mg/Ml Vial IVP 1 mg Q4H PRN PRN Administration Magnesium Hydroxide 30 ml 09/29/23 21:24 09/30/23 21:59 Milk Of Magnesia 30 Ml Cup PO 30 ml DAILY PRN PRN Administration Morphine Sulfate 2 mg 09/30/23 10:16 10/02/23 06:39 Morphine 2 Mg/Ml Syr IVP 2 mg Q2H PRN PRN Administration Multi-Ingredient Supplement 1 ounce 10/01/23 14:00 10/01/23 19:54 Protein Nutritional Supplement 16 Gm 1 Ounce Packet PO Not Given TID TAMIKO Pantoprazole Sodium 40 mg 10/01/23 07:30 10/01/23 08:49 Pantoprazole 40 Mg Tabcr PO 40 mg DAILY@0730 TAMIKO Administration Polyethylene Glycol 17 gm 09/29/23 21:24 Polyethylene Glycol 3350 17 Gm Packet PO DAILY PRN PRN Constipation Prednisone 40 mg 10/01/23 08:30 10/01/23 08:51 Prednisone 20 Mg Tab PO 40 mg DAILY TAMIKO Administration Sodium Chloride 0 ml 09/29/23 16:25 10/02/23 02:57 Normal Saline Flush 10 Ml Syr IVP 10 ml PRN PRN Administration Sodium Chloride 0 ml 09/29/23 20:00 10/01/23 19:16 Normal Saline Flush 10 Ml Syr IVP 10 ml BID TAMIKO Administration Sodium Chloride 0 ml 09/29/23 16:25 Normal Saline 10 Ml Vial IJ DIRECTED PRN Umeclidinium [place] 0 cap 10/01/23 11:00 10/01/23 13:30 Umeclidinium 7 Cap Inhaler IH Not Given DAILY TAMIKO Allergies amiodarone Allergy (Unknown, Verified 09/29/23 16:27) Other (See Comment) Exam Narrative Exam Narrative: Gen: mild respiratory distress, cachectic, speaks in 5 word sentences before needing a breahting break HENT: PERRL Chest: No respiratory distress, normal appearance of chest, clear to auscultation bilaterally, no crackles or wheezes, normal inspiratory effort Heart: regular rate and rhythym, no murmurs, rubs or gallops Abdomen: Non-distended, soft, non tender Extremities: No clubbing, edema, cyanosis, rashes Neuro: AAOx3 , non focal Psych: cooperative, appropriate mental affect Results Last Vital Signs Temp 36.7 C 10/02/23 06:39 Pulse 71 10/02/23 05:53 Resp 12 10/02/23 06:00 BP 145/84 H 10/02/23 05:53 Pulse Ox 93 10/02/23 06:00 Labs 09/30/23 05:39 09/30/23 05:39
[2023-10-02] MEDS: Budesonide/Formoterol 160/4.5 6 GM 60 PUFF INH IH ×2 (07:39→20:36)
[2023-10-02] MEDS: Umeclidinium 7 CAP INHALER IH (07:39)
[2023-10-02] MEDS: Levalbuterol 1.25 MG/3 ML UPD VIAL UPD ×2 (07:54→20:33)
[2023-10-02] MEDS: Enoxaparin 30 MG/0.3 ML SYR SC (08:00)
[2023-10-02] MEDS: Pantoprazole 40 MG TABCR PO (08:01)
[2023-10-02] MEDS: Azithromycin 250 MG TAB PO (08:01)
[2023-10-02] MEDS: predniSONE 20 MG TAB 40 MG PO (08:01)
[2023-10-02] MEDS: Protein Nutritional Supplement 16 GM 1 OUNCE PACKET PO ×2 (08:02→19:20)
--- NOTE | 2023-10-02 08:14 | W.PM.PROGNOT ---
Date of Service Date of service: 10/02/23 Time of Service: 08:14 Assessment and Plan Assessment and plan (1) Acute exacerbation of chronic obstructive pulmonary disease (COPD): Status: Acute Assessment and plan: continue Symbicort, and Incruse Ellipta, Duoneb on prn basis, encourage use of acapella, continue azithromycin for antiinflammatory effect and empiric treatment of acute bronchitis, continue prednisone; encourage him to get out of bed/ambulate; will dc his santillan catheter to improve mobility/transfers; already have consulted w/ P.T. and nutrition and palliative care; appreciate Dr. Mora's input. will get alpha 1 AT level. (2) Acute on chronic respiratory failure with hypoxia and hypercapnia: Status: Acute Assessment and plan: wean oxygen as tolerated. trial off bipap tonight. continue to monitor his SPO2 but does not need telemetry (3) Underweight: Status: Acute Assessment and plan: I have added protein supplements, MVS and requested nutritional consult. Subjective Subjective Interval history since last seen: Jimmy states that he feels so so. Overall he has improved. He is down to 1 lpm NC w/ SPO2 of 97%. He did wear the BIPAP for couple hours last night. We will trial him off BIPAP. Patient relates that his respiratory problems initially began in 2009 after he was hospitalized for bowel obstruction and developed HAP and since that time he has been diagnosed w/ COPD although no formal evaluation by pulmonary. His CT w/o contrast yesterday confirmed he has bullous emphysema, centrilobular. Dr. Mora has seen the patient and we will get alpha 1 antitrypsin level. Exam Narrative Exam Narrative: Elderly male who appears cachectic, he is able to speak in complete sentences w/out severe dyspnea, he has moist cough Lungs: diffusely diminished breath sounds, no rhonchi or wheezing Heart: RRR, no mumur, rub or gallop chest wall: pectus excavatum Abdomen: scaphoid, nontender, normal bowel sounds Extremities: no edema Objective Last Vital Signs Temp 36.7 C 10/02/23 06:39 Pulse 81 10/02/23 08:04 Resp 14 10/02/23 08:04 BP 155/85 H 10/02/23 07:40 Pulse Ox 97 10/02/23 08:00 Time Spent with Patient Time Spent with Patient: 35-49 minutes Time was spent: preparing to see the patient(eg.review tests), obtaining and/or reviewing separately otained hiistory, ordering medications,tests, procedures, referring, communicating with other health healthcare insurance sales agent, indepentently interpreting results, counseling the patient and care coordination
[2023-10-02] MEDS: guaiFENesin 600 MG TABCR PO ×2 (09:27→19:21)
[2023-10-02] MEDS: Multivitamin TAB 1 TAB PO (09:27)
[2023-10-02] MEDS: Milk of Magnesia 30 ML CUP PO (09:34)
[2023-10-02] MEDS: Docusate Sodium 100 MG CAP PO (09:34)
--- NOTE | 2023-10-02 14:35 | IN_ITS ---
Date of service: 10/02/23 Time of Service: 14:05 PT Notes Visit Reasons: Acute on chronic hypercapnic respiratory failure Date: 10/02/23 Referring Doctor: Olu Saldaña PT Orders: PT CONSULT: Exacerbation chronic COPD Precautions: Standard, fall risk Patient Profile/Admitting Diagnosis: 78 yo male presenting to ER on 09/29/23 w shortness of breath, medical work up confirming chronic respiratory failure with hypoxia and hypercapnia. Prior to admission he was no on Oxygen supplementation, currently utilizing NC oxygen support 1L at rest, increasing with activity. Social History/Home Situation: Lives in a 2 story private home with his . No bathroom on second floor with bedroom. He has one step to enter home with rail. He does not use AD at baseline, is using walker presently. He is retired. Equipment Owned/DME: JON Subjective: He walked with nursing this morning length of hallways with either 2-3L of NC O2 supplementation. He required use of RW due steady himself, he would have fallen without it. He felt strong aside from his breathing and poor balance. He denies pain, just very winded. He has to stand before doing any activity to improve his breathing control. Objective: General Observation: Lying in hospital, NC of 1L O2, increases to 2L O2 with activity. Appears slight distress only due to breathing difficulty Mental Status: A&Ox3 Vitals: O2 on 1L sedentary 90%, drops to 85% with standing x 1 min. Increase O2 to 2L, recovers to 92% and remains here with 2L for rest of evaluation. RN left with patient to adjust O2 as needed. ROM: Right Upper Extremity: WFL Left Upper Extremity: WFL Right Lower Extremity: WFL Left Lower Extremity:WFL Strength: Right Upper Extremity: 3+/5 grossly Left Upper Extremity: 3+/5 grossly Right Lower Extremity: 4/5 grossly Left Lower Extremity: 4/5 grossly Bed Mobility/Transfers: All with NC O2 supplementation of 2L with activity. Bed mobility: Independent Supine 45 deg HOB to EOB Independent Stand at RW x 3 min, CG Bed <> chair, RW, CG - required 5 min rest between. Ambulated prior with nursing length of hallways which is about 100 ft, w RW, I did not observe this, and I did not repeat given patient fatigue and difficulty with O2 absorption post all this activity. Currently receiving Valium at time of my evluation. Gait: RW, CG - 100 ft with nursing, NC O2 2-3L Balance: Static Sitting: Good Dynamic Sitting: Good Static Standing: Fair at RW Dynamic Standing: Fair at RW Stage 4 Balance Test Time (seconds) Feet together 10 Partial tandem 3 Tandem unable One foot unable Special Tests: Mobility Limitations Standardized Measure [facility] AM-PAC 6 clicks Basic Mobility Inpatient Short Form: 42% disability Informed Consent/Education: Patient instructed in purpose of PT consult and plan of care. Treatment: Initial evaluation 42007 Advised in diaphragmatic belly breathing technique Assessment: Patient is a 78 year old male referred to physical therapy services with reason for PT evaluation with admitted diagnosis of COPD exacerbation with respiratory failure, recently having been transferred to the floor from ICU due to improvments. Now dependent on 1LO2 at rest, 2LO2 with activity. Patient presents with with strength, balance, and gait impairments related to acute medical issues. She requires skilled PT intervention to maximize safety mobility to allow for safe transition home once medically stable, and attend to below deficits. Anticipate return home with O2 supplementation Impairment level findings: Dependent on O2 supplementation for activity Global weakness Poor balance Global muscle atrophy Poor breathing motor control Impairments are contributing to the following functional limitations: CGA, RW, and O2 supplementation for transfers, ambulation and to prevent falls Unable to climb stairs as his home requires Poor household level endurance ability for safe ADL's and self care [facility] 42% disability Patient is assessed as moderate complexity based on the following: History: All Active Problems (Updated 09/29/23 @ 21:31 by Brendan Crane MD) Acute on chronic respiratory failure with hypoxia and hypercapnia (Acute) Acute exacerbation of chronic obstructive pulmonary disease (COPD) (Acute) Adrenal adenoma (Acute) COPD (chronic obstructive pulmonary disease) (Chronic) Sudden hearing loss (Acute) Hypertensive disorder (Chronic) Underweight (Acute) Constipation (Acute) Examination: impairment and functional limitations as noted above Presentation: Evolving Decision Making: Easy Goals: Goals X1 week 1. Supine-Sit : Independent 1LO2 2. Sit-Supine : Independent 1LO2 3. Sit-Stand : SBA, RW, 1LO2 4. Stand-Sit : SBA, RW, 1L O2 5. Bed-Chair : SBA, RW, 1LO2 6. Chair-Bed : SBA, RW, 1LO2 7. Gait : 200 feet, RW, supervision, 1L O2 with stable oxygen saturation 8. Stairs : 10, 1 rail, CGA, 1 L O2 9. 10 sec tandem stance, 5 sec SLS with mild RW assist. Plan of Care/Treatment Plan: 1-2x/day, 7 days/week x 1 week. Plan of care has been reviewed with the INSURANCE VERIFICATION CLERK providing the service under Physical Therapy direction. Initiate Physical Therapy intervention for strengthening, bed mobility, transfers, gait, stairs, balance training, use of assistive device. DISCHARGE RECOMMENDATIONS: Patient will require RW at time of discharge to prevent falls and to allow for stability assist given current balance impairment. Recommend home health PT services TREATMENT CODE/TIME: 09625, 30 min Glo Bautista, [facility]
--- NOTE | 2023-10-02 14:52 | W.NUTCONSULT ---
Date of service: 10/02/23 Time of Service: 14:53 Nutritional Consult ASSESSMENT: pt is a 78yo male Admitted after being SOB and found to have acute on chronic resp failure. Pt with PMH of COPD, Adrenal adenoma, constipation. He is currently underwieght with a BMI of 13.5kg/m2 - although height appears inaccurate at 74 with 6ft and 5'11'' being in his recent history. Either way, patient is cachexic in appearance upon visit, reporting not eating much at all since monday. States he lost 10-12 pounds within the last year - states he was fasting for wt loss but went overobard.Noted is a 1.8kg wt loss x3 days (3.7%bosy weight loss). Pt with very loose fitting dentures which continued to fall out of place throughout our conversation. States he usually eats organic, takes vitamin B, C and Curcumin at home. Pt ordered for regular diet with normal consistencies, as well as liquid protein concentrate TID and MVI . PT declines traditional medical ONS but open to homemade smoothie with whey protein. estimated nutr needs: 1605 (1800 rec for wt gain), 71g protein (1.5g.kg current wt) NUTRITIONAL DIAGNOSIS: Inadequate energy intake (NI-1.4) related to lower po intake with increased kcal expenditure due to COPD, as evidenced by significant weight loss over the last year - reported as 10-12 pounds. INTERVENTION: Will provide 8oz whey protein smoothies at breakfast and lunch to supply an additional 412 kcals and 38g protein, in addition to the liquid protein TID supplyinjg 45g protein. totaol of 83g protein available as supplement to po intake at meals and snacks. PT may benefit from appetite stimulant - recommend megestrol to see if it helps Will alert kitchen to guide in ordering to softer foods due to loose fitting dentures. MONITORING AND EVALUATION: will monitor wt, intake, labs and ability to maintain adequate po kcals. Time Spent in Nutritional Counseling and Treatment: 15 minutes
--- NOTE | 2023-10-02 16:29 | PDOC.CMPRO ---
Date of service: 10/02/23 Time of Service: 16:29 Care Management Progress Note Progress Note Text Progress Note Text: S/O: Jimmy was sleeping when CM attempted to meet with him. CM called his , Myesha, and was not successful connecting with her. Per report, Jimmy has improved significantly since his admission. He is now on 1LO2 NC with SPO2 of 97%. MD plans to wean him off Bipap overnight, if possible. Palliative was not available to meet with him today, but will plan to see him tomorrow, if their schedule allows. Over the weekend, Jimmy was not doing well, and CM and MD had discussed hospice support at home. Per MD, he is doing much better now, but will still meet with palliative to discuss his goals of care. CM will continue to follow. A: Jimmy is a 78 year old male admitted to [facility] on 09/29/23 with acute on chronic hypercapnic respiratory failure. P: Anticipate Jimmy will return home with new orders for HH services vs an admission to hospice. He may require new home O2, coordinated by RT vs hospice, depending on his disposition. He will be transported home via private vehicle by his . He will follow up with his PCP and discharge plan of care. CM will continue to follow. SDOH(Care Management) Screening Will the Patient Participate in the Screening?: Yes Do you worry about having a steady place to live?: yes Problems where you live: inadequate lighting In the past 12 months, have you had to go without electric, gas, oil or water in your home?: no Have you or anyone in your house had to go without enough food to eat?: no Has lack of transportation kept you from medical appointments or from doing things needed for daily living?: yes Has anyone in your support network made you feel unsafe for any reason?: yes Social Determinants of Health Comments(SDOH Details): medical appts, home health help and palliative consults and hospice care in future Health Related Social Needs Health related social needs: inadequate housing(Z59.1), housing instability, housed, with risk of homelessness(Z59.811), transportation insecurity(Z59.82) and problem related to primary support group(Z63.9) Health related social needs details: difficulty getting to appts
[2023-10-02] MEDS: Albuterol/Ipratropium 3 ML UPD VIAL UPD (17:15)
[2023-10-03] VITALS (9 sets, daily range): BP systolic 131–154; BP diastolic 76–90; PULSE 70–95; RESP 8–17; TEMP 36.1–36.2; O2SAT 83–100
[2023-10-03] MEDS: MORPHine 2 MG/ML SYR IVP ×3 (00:39→14:07)
[2023-10-03] MEDS: Normal Saline Flush 10 ML SYR IVP ×5 (00:40→20:31)
[2023-10-03] MEDS: diazePAM 10 MG/2 ML SYR 2 MG IVP (05:16)
[2023-10-03 07:01] LABS: Abs Immature Grans 0.02 10^3/uL (0.0-0.06); Absolute Lymphocyte Count 0.58 10^3/uL (1.2-3.4); Absolute Monocyte Count 0.64 10^3/uL (0.1-0.8); Absolute Neutrophil Count 5.49 10^3/uL (1.2-6.7); HCT 47.1 % (40.0-50.0); HGB 14.8 g/dL (13.5-17.5); Immature Grans % 0.3 %; Lymphocytes % 8.6 %; MCH 29.5 pg (27.0-33.0); MCHC 31.4 % (32.0-36.0); MCV 94 fL (80-95); MPV 11.2 fL (8.0-11.0); Monocytes % 9.5 %; Neutrophils % 81.6 %; Platelet Count 174 10^3/uL (130-400); RBC 5.02 10^6/uL (4.36-5.78); RDW-SD 44.9 fL; WBC 6.73 10^3/uL (4.4-10.8)
[2023-10-03] MEDS: Umeclidinium 7 CAP INHALER IH (07:43)
[2023-10-03] MEDS: Budesonide/Formoterol 160/4.5 6 GM 60 PUFF INH IH ×2 (07:43→20:17)
[2023-10-03] MEDS: Enoxaparin 30 MG/0.3 ML SYR SC (08:26)
[2023-10-03] MEDS: Azithromycin 250 MG TAB PO (08:26)
[2023-10-03] MEDS: Multivitamin TAB 1 TAB PO (08:27)
[2023-10-03] MEDS: guaiFENesin 600 MG TABCR PO ×2 (08:27→20:30)
[2023-10-03] MEDS: Pantoprazole 40 MG TABCR PO (08:27)
[2023-10-03] MEDS: predniSONE 20 MG TAB 40 MG PO (08:27)
[2023-10-03] MEDS: Protein Nutritional Supplement 16 GM 1 OUNCE PACKET PO ×2 (08:28→20:30)
[2023-10-03 09:40] LABS: Alpha 1 Antitrypsin,Serum 163 mg/dL (90-200)
[2023-10-03] MEDS: LORazepam 2 MG/ML VIAL 1 MG IVP (12:44)
--- NOTE | 2023-10-03 13:26 | W.PALLCONSUL ---
Date of service: 10/03/23 Time of Service: 14:23 History of Present Illness Narrative: Mr. Baeza is a 78-year-old gentleman from [facility] with a history of end-stage COPD who was admitted to [facility] 4 days ago with acute on chronic hypercapnic respiratory failure, requiring BiPAP therapy. Diagnosis is acute exacerbation of COPD. Presented to ED in severe respiratory distress with respiratory rate 50s, O2 sat low 70%, tachycardia. His other medical problems include known COPD, hypertension, weight loss. He has been placed on antibiotics and started on a prednisone taper as well. Precipitated by an URI he shared with his . COPD: Dx COPD 2009. AT that time he Got very sick with PNA after bowel resection for strangulated hernia resulted in intubation for a week and total 2 month hospital admission both here and [place] [facility] Patient never smoked. Previous to admission he has been on Advair and Incruse prescribed by PCP. Had not been followed by pulmonary prior to inpatient consult during this admission. She recommended getting an alpha-1 antitrypsin level given lack of smoking history. Dr. Vieira notes that his 2011 PFTs already showed severe airflow obstruction. 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 says that he will need to go home on oxygen. Weight loss: He has always been thin, but has been losing weight since bowel resection. MOre weight loss sin the last 2 months. SInce bowel resection complains of abd pain after he eats, lasts an hour or so, also worse the last few months. Meat and potatoes easier to digest. Avoids many foods (she cannot tell me which). Patient's weight this admission 47-50 kg (RD states BMI 13.5). Previous weight 2011 was 60 kg. No weights recorded in the interim on [facility] chart. ANd cannot quantitate amount of weight loss. Stopped driving several years ago because of poor vision and poor vision. 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 Care Team: Primary Care physician: Rhonda Auguste NP (only saw him a few times). Adjunct Faculty Instructor-none Pulmonary: Dr. 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 Initially from [place], moved to [place] in the . 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 astrologer NO family in area. A few friends in the area, not a lot support available locally. does drive. Additional Services: None at present Goals: To have a pleasant . As per . What would a good day look like?: Being able to sleep late. Enjoy a late brunch with . Be on the computer reading on news and astrology and his condition and other topics. (i,e, still curious) Meditating Function: Ambulation: Cane at times. Was down to walking very short distances because of BRADSHAW. ADLs: Independent iADLs: DOes not do any chores at home, does chores and cooking. does all finances. Hearing: reduced, does not wear his hearing aids Vision: Has marked reduced vision but has not had it evaluated. Cognition: noted no memory or cognitive issues. Falls: ONe fall 2 months ago trying to avoid tripping on cat Driving:NO driving for years due to vision and hearing Palliative Performance Scale % Ambulation Activity and Evidence of Disease Self Care Intake Level of Consciousness 100 Full Normal activity, no evidence of disease Full Normal Full 90 Full Normal activity, some evidence of disease Full Normal Full 80 Full Normal activity with effort, some evidence of disease Full Normal or reduced Full 70 Reduced Unable to do normal work, some evidence of disease Full Normal or reduced Full 60 Reduced Unable to do hobby or some housework, significant disease Occasional assist necessary Normal or reduced Full or confusion 50 Mainly sit/lie Unable to do any work, extensive disease Considerable assistance required Normal or reduced Full or confusion 40 Mainly in bed Unable to do any work, extensive disease Mainly assistance Normal or reduced Full, drowsy, or confusion 30 Totally bed bound Unable to do any work, extensive disease Total care Reduced Full, drowsy, or confusion 20 Totally bed bound Unable to do any work, extensive disease Total care Minimal sips Full, drowsy, or confusion 10 Totally bed bound Unable to do any work, extensive disease Total care Mouth care only Drowsy or coma 0 - - - - Patient Score: 50 Spiritual history: Meditation helps him cope, practices restorationist form of yoga. Palliative review of systems: Pain: ABdominal pain after eating chronically. Reported to that he hurts all over (spine and shoulders and hands seemed ot be the worst).. Dyspnea: SInce admission, very SOB with exertion, HAd to eat slowly. GI symptoms: See HPI Appetite: Had had decreased appetite. Depression: NOt really, handles thing well. Anxiety: None Emotional Distress: None Spiritual/Existential Distress: none Labs: Cr: 0.7 Liver panel: Normal Albumin: 3.5 CBC: Hemoglobin 14.8 Advanced Care Planning: Advanced Directive: NOne. Health Care Agent: COLST: Limitations: Never wanted a ventilation or to have CPR. Assessment and Plan Assessment and plan (1) Acute on chronic respiratory failure with hypoxia and hypercapnia: Status: Acute Assessment and plan: Mr. Baeza is a 78 yo man from [facility] with history of end stage COPD and pulmonary cachexia, now with admission for severe COPD exacerbation with hypoxia, hypercapneic respiratory failure requiring BiPap and ICU admission. HE has slowly improved and is no on the floor. But he and are requesting hospice admission, as they feel he has had significant decline over the last year, more so in the last 2-3 months. He wishes to remain home. (2) Pulmonary cachexia due to COPD: Status: Acute (3) COPD (chronic obstructive pulmonary disease): Status: Chronic Assessment and plan: SUggest decreasing Morphine to 2 mg oral/sublingual (or only 1 mg IV) every 2 hours as needed for severe dyspnea or increased work of breathing. Given weight,, suggest decreasing lorazepam to 0.5 mg po/IV every 4-6 hours only if needed for anxiety. (4) Advanced care planning/counseling discussion: Status: Acute Assessment and plan: Pt and feel that he has been failing for ten years and even more so the last 3 months. They are requesting hospice so that he can remain at home with support. What note most is the progressive weakness, loss of ability to participate in home chores and the weight loss. Hopsice appears to align with patient's goals Health Care Agent: He wants his to be [facility]. Friend Kaye Samuel would be alternate (lives in [facility]). [facility] form completed and given original Code Status: Patient unequivocally does not want to receive CPR or to be intubated. He was intubated in 2010 and does not want to be intubated again. reports that he has said this for years. He understands what CPR and what not receiveing CPR means. Regarding whether or not to return to the hospital, and patient would like to enroll in hospice so that he can be kept comfortable at home and not return to the hospital. They understand that this would mean not receiving IV hydration or IV abx or Bipap. He would consider a trial of oral abx at home if indicated. [facility]ST form was completed: DNR/DNI , do not transfer to hospital, no IV hydration or IV abx. OK for trial of oral abx. Hospice: Patient and discussed option of continuing to seek treatment with testing and seeing casino floor runner and PCP vs. admitting to Hospice. They both feel very strongly that they want to pursue hopsice type care only. -Criteria: Pt with episode acute hypercapneic/hypoxic respiratory failure, likely due to viral URI. Pt with weight loss 20+ pounds (>20% total weight) in the last 12 years. Pt reports 10-12 lb weight loss over the last year. FEV1 in 2010: 31% predicted and FVC 60% predicted. NO PFTs since. Pt with declining PPS as per report from in the last 2-3 months. -Hospice dx: end stage COPD and pulmonary cachexia.I believe that his Prognosis is less than 6 months. Hospice referral will be made. (Actually, hospice nurse arrived at the end of my visit). Addl discussion with hospitalist, Case management, hospice nurse, floor nurse, PT. (5) Palliative care patient: Status: Acute (6) DNR (do not resuscitate): Status: Acute PFSH All Active Problems (Updated 10/03/23 @ 15:19 by Shellie Serrano MD) DNR (do not resuscitate) (Acute) Palliative care patient (Acute) Advanced care planning/counseling discussion (Acute) Pulmonary cachexia due to COPD (Acute) Acute on chronic respiratory failure with hypoxia and hypercapnia (Acute) Acute exacerbation of chronic obstructive pulmonary disease (COPD) (Acute) Adrenal adenoma (Acute) COPD (chronic obstructive pulmonary disease) (Chronic) Sudden hearing loss (Acute) Hypertensive disorder (Chronic) Underweight (Acute) Constipation (Acute) Social History Smoking/Tobacco Use Status: Never Smoking risk assessment performed?: Yes Alcohol Intake: current Alcohol Intake frequency: holidays/special occasions only Substance use type: does not use Housing: house Exam Narrative Exam Narrative: Initially sleeping. WHen he awakens, he is pleasant, but quite hard of hearing. Occ tight cough, Able to speak in complete sentences. QUite SOB after stannding (needs to rest before walker with walker). Results Last Vital Signs Temp 36.2 C L 10/03/23 07:47 Pulse 70 10/03/23 07:47 Resp 16 10/03/23 07:47 BP 131/76 10/03/23 07:47 Pulse Ox 98 10/03/23 07:47 Labs 10/03/23 06:00 09/30/23 05:39 Labs: Laboratory Results - last 24 hr 10/03/23 06:00 WBC 6.73 RBC 5.02 Hgb 14.8 Hct 47.1 MCV 94 MCH 29.5 MCHC 31.4 L RDW 13.0 Plt Count 174 MPV 11.2 H Immature Gran % 0.3 Neutrophils % 81.6 Lymphocytes % 8.6 Monocytes % 9.5 Eosinophils % 0.0 Basophils % 0.0 Nucleated RBC % 0.0 Absolute Neutrophils 5.49 Absolute Lymphocytes 0.58 L Absolute Monocytes 0.64 Absolute Eosinophils 0.00 Absolute Basophils 0.00
--- NOTE | 2023-10-03 13:42 | PTTR_ITS ---
PT Notes Visit Reasons: Acute on chronic hypercapnic respiratory failure Date: 10/03/23 PRECAUTIONS: Standard, fall risk SUBJECTIVE: Pt in bed when approached for therapy session this morning, agreed to participating with therapy session. OBJECTIVE: ? Quiroga catheter in place, 2.5L O2 support NC? PAIN: none reported VITALS: monitored by nursing Therapeutic Activities 13501: Direct one-on-one instruction in dynamic activiti es to improve functional performance. ?? BED MOBILITY/TRANSFERS? Rolling L/R: supervision Supine-sit: ? supervision? Sit-supine: ? supervision? Sit-stand: ? CGA? Stand-sit: ?CGA? Bed-Chair:?CGA ? Chair-bed: CGA Provided skilled cues and instruction on performance and technique throughout. Gait Training 25028: Direct one-on-one instruction and skilled instruction in: Employing an assistive device Modified weight-bearing status Movement sequencing Turning and movement with proper form Provided verbal cues for equipment management and technique Provided instruction in gait pattern Patient education regarding pacing and breathing techniques to maximize activity tolerance? GAIT? Assistive Device: ?FWW ? Weight bearing: FWB Assist: CGA ? Distance:??300' with standing rest break every 50' ? Deviation: Slow macy speed, low step height, short step length? ASSESSMENT:?As per nurse Mercedes O2 support @4L when walking, pt very engaged happy to be doing therapy, pt cue for deep breathing when having SOB, able to complete activity but required multiple long standing rest break to recover from dyspnea. PLAN: Continue with balance training, global strengthening and general conditioning for improved safety, mobility and activity tolerance until pt is ready for DC. TREATMENT CODE/TIME: 73947e7 [id number] 60mins (11:35-12:35pm)
[2023-10-03 14:32] LABS: Streptococcus Pneumoniae Ag, U Negative (Negative)
--- NOTE | 2023-10-03 16:31 | PT.INTREAT ---
PT Notes Visit Reasons: Acute on chronic hypercapnic respiratory failure Date: 10/03/23 PRECAUTIONS: Standard, fall risk SUBJECTIVE: Pt in bed when approached for therapy session this afternoon, pt and pt's meeting with Home health hospice, pt requested for therapy after meeting was done. OBJECTIVE: ? condom catheter in place, 3L O2 support NC? PAIN: none reported VITALS: monitored by nursing Therapeutic Activities 61152: Direct one-on-one instruction in dynamic activities to improve functional performance. ?? BED MOBILITY/TRANSFERS? Rolling L/R: supervision Supine-sit: ? supervision? Sit-supine: ? supervision? Sit-stand: ? CGA? Stand-sit: ?CGA? Bed-Chair:?CGA ? Chair-bed: CGA Provided skilled cues and instruction on performance and technique throughout. Gait Training 08126: Direct one-on-one instruction and skilled instruction in: Employing an assistive device Modified weight-bearing status Movement sequencing Turning and movement with proper form Provided verbal cues for equipment management and technique Provided instruction in gait pattern Patient education regarding pacing and breathing techniques to maximize activity tolerance? GAIT? Assistive Device: ?FWW ? Weight bearing: FWB Assist: CGA ? Distance:??150' with standing rest break every 50' ? Deviation: Slow macy speed, low step height, short step length? ASSESSMENT:?pt had multiple bilateral knee buckling this afternoon, with pt able to self recover, pt continues to require long standing rest breaks to be able to address SOB, took a long seated rest break at the EOB post gait training prior to going in bed. PLAN: possible DC tomorrow with services from home health hospice. Treatment code: 52004e5, [id number] 45mins (3:45-4:30pm)
--- NOTE | 2023-10-03 17:20 | PDOC.CMPRO ---
Date of service: 10/03/23 Time of Service: 17:20 Care Management Progress Note Progress Note Text Progress Note Text: S/O: Jimmy was sitting up in bed visiting with his when CM met with him. He was pleasant and agreeable to conversation but appeared short of breath; his did most of the talking. Jimmy expressed a desire to be discharged home and admitted to hospice. This conversation began when he was critically ill and recovery was uncertain. Since then he has improved significantly so a follow up Palliative visit was requested to determine if his goals of care remain the same. They met with Dr. Serrano this afternoon and confirmed their decision to transition to hospice. A nurse from [facility] came to see this this afternoon as well and plans to order a hospital bed and any other needed equipment as long as he is hospice eligible, which will be determined tomorrow. A: Jimmy is a 78 year old male admitted to [facility] on 09/29/23 with acute on chronic hypercapnic respiratory failure. P: Anticipate Jimmy will transition to comfort care at the end of the week. He will likely remain at [facility] for end of life care. CM will follow and continue to support Quang and his family during this difficult time. SDOH(Care Management) Screening Will the Patient Participate in the Screening?: Yes Do you worry about having a steady place to live?: yes Problems where you live: inadequate lighting In the past 12 months, have you had to go without electric, gas, oil or water in your home?: no Have you or anyone in your house had to go without enough food to eat?: no Has lack of transportation kept you from medical appointments or from doing things needed for daily living?: yes Has anyone in your support network made you feel unsafe for any reason?: yes Social Determinants of Health Comments(SDOH Details): medical appts, home health help and palliative consults and hospice care in future Health Related Social Needs Health related social needs: inadequate housing(Z59.1), housing instability, housed, with risk of homelessness(Z59.811), transportation insecurity(Z59.82) and problem related to primary support group(Z63.9) Health related social needs details: difficulty getting to appts
--- NOTE | 2023-10-03 17:28 | PGE_ITS ---
Date of Service Date of service: 10/03/23 Time of Service: 17:29 Assessment and Plan Assessment and plan (1) Acute exacerbation of chronic obstructive pulmonary disease (COPD): Status: Acute Assessment and plan: continue Symbicort, and Incruse Ellipta, Duoneb on prn basis, encourage use of acapella, continue azithromycin for antiinflammatory effect and empiric treatment of acute bronchitis, continue prednisone; encourage him to get out of bed/ambulate; alpha AT level is pending. Per CM, patient desires to return home on hospice. Patient will be dc tomorrow once hospice has set up hospital bed, any other equipment that is needed. Patient was too lethargic at the time of my visit to discuss his goals of care. Palliative care did meet w/ him earlier when he was more alert and his was able to participate. 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 Although this is his first life threatening exacerbation of his COPD since his original diagnosie when he had post operative respiratory failure 14 yrs ago, I think hospice is a reasonable option given his recent trajectory. (2) Acute on chronic respiratory failure with hypoxia and hypercapnia: Status: Acute Assessment and plan: wean oxygen as tolerated. trial off bipap tonight. continue to monitor his SPO2 but does not need telemetry (3) Underweight: Status: Acute Assessment and plan: I have added protein supplements, MVS and requested nutritional consult (see consult report). Subjective Subjective Interval history since last seen: Mr. Baeza was obtunded when I entered his room this afternoon. He was sitting up in bed at about 60 degrees w/ his mouth wide open and eyes shut and his dentures falling out of his mouth. His SPO2 was 99% and he was on 3 lpm oxygen. I stopped his oxygen for several moments until his SPO2 dropped to 91% and he became more awake and responsive to verbal. I then put him on oxygen at 0.5 lpm and watched him for several minutes and his SPO2 climbed to 96%. Per nursing his SPO2 dropped to 85% and he was dyspneic after PT walked him so they put him on the higher flow. I will check VBG but suspect he was retaining CO2 causing narcosis. Exam Narrative Exam Narrative: Jimmy initially was obtunded but became more awake and responsive after his SPO2 dropped to 91% on RA He is now alert enough that he wants something to drink. His dinner tray was set before him and when I found him, his right hand had a fork in his food but he was not initially responsive to verbal and even to tactile stimulation until his oxygen supply was lowered Lungs: diffusely diminished breath sounds Heart: RRR Abdomen: scaphoid, nontender Extremities: no edema Objective Last Vital Signs Temp 36.1 C L 10/03/23 15:04 Pulse 78 10/03/23 15:04 Resp 17 10/03/23 15:04 BP 154/90 H 10/03/23 15:04 Pulse Ox 99 10/03/23 15:04 Laboratory Results - last 24 hr 10/01/23 10/02/23 10/03/23 10:24 10:50 06:00 WBC 6.73 RBC 5.02 Hgb 14.8 Hct 47.1 MCV 94 MCH 29.5 MCHC 31.4 L RDW 13.0 Plt Count 174 MPV 11.2 H Immature Gran % 0.3 Neutrophils % 81.6 Lymphocytes % 8.6 Monocytes % 9.5 Eosinophils % 0.0 Basophils % 0.0 Nucleated RBC % 0.0 Absolute Neutrophils 5.49 Absolute Lymphocytes 0.58 L Absolute Monocytes 0.64 Absolute Eosinophils 0.00 Absolute Basophils 0.00 [id number] 163 Ur Strep pneumoniae Ag Negative Time Spent with Patient Time Spent with Patient: 35-49 minutes Time was spent: preparing to see the patient(eg.review tests), ordering medicati ons,tests, procedures, referring, communicating with other health care consultant (communication w/ Dr. Serrano, discussion w/ nursing and CM (Greta)), indepentently interpreting results, counseling the patient and care coordination
[2023-10-03 18:04] LABS: BE (Venous) 17 mmol/L (-2-3); HCO3 (Venous) 41 mmol/L (23-28); O2 Sat (Venous) 81 %; TCO2 (Venous) 36 mmol/L (24-29); pH (Venous) 7.41 (7.31-7.41); pO2 (Venous) 43 mmHg
[2023-10-03 18:06] LABS: pCO2 (Venous) 65 mmHg (41-51)
--- NOTE | 2023-10-03 18:57 | RESPIRATORY ---
1849 Called by RN to assess pt; pt states he is feeling pain in his back that he believes is gas pain, which he states happens whenever he eats/drinks since being in the hospital. Pt states his breathing feels fine with just a little bit of SOB. Pt states that a neb probably couldn't hurt, reported to night RT that pt would like neb, pt does not appear to be in distress at this time. Pt SPO2 85-86% on .5L, increased to 3L 95%, night RT will wean. Reported to RN Mercedes these findings; RN mentioned use of NIV but that is not indicated at this time, last VBG 7.41.
[2023-10-03] MEDS: Albuterol/Ipratropium 3 ML UPD VIAL UPD (20:13)
[2023-10-04] MEDS: LORazepam 2 MG/ML VIAL 1 MG IVP ×3 (01:53→15:12)
[2023-10-04] MEDS: Normal Saline Flush 10 ML SYR IVP ×3 (01:55→22:48)
[2023-10-04 04:22] VITALS: BP 154/90; PULSE 90; RESP 18; TEMP 36.6; O2SAT 94
[2023-10-04] MEDS: Polyethylene Glycol 3350 17 GM PACKET PO (04:41)
[2023-10-04 07:55] VITALS: BP 119/70; PULSE 79; RESP 18; TEMP 36.1; O2SAT 100
[2023-10-04] MEDS: Enoxaparin 30 MG/0.3 ML SYR SC (08:07)
[2023-10-04] MEDS: Protein Nutritional Supplement 16 GM 1 OUNCE PACKET PO ×3 (08:08→21:11)
[2023-10-04] MEDS: predniSONE 20 MG TAB 40 MG PO (08:08)
[2023-10-04] MEDS: Multivitamin TAB 1 TAB PO (08:10)
[2023-10-04] MEDS: Pantoprazole 40 MG TABCR PO (08:10)
[2023-10-04] MEDS: guaiFENesin 600 MG TABCR PO ×2 (08:10→21:11)
[2023-10-04] MEDS: Dicyclomine 10 MG CAP PO ×4 (08:11→21:11)
[2023-10-04] MEDS: Azithromycin 250 MG TAB PO (08:11)
[2023-10-04] MEDS: Umeclidinium 7 CAP INHALER IH (08:42)
[2023-10-04] MEDS: Budesonide/Formoterol 160/4.5 6 GM 60 PUFF INH IH ×2 (08:42→20:27)
--- NOTE | 2023-10-04 09:42 | CMPROGNOTE_ITS ---
Care Management Progress Note Progress Note Text Progress Note Text: S/O: Jimmy met with Dr. Serrano from Palliative care yesterday evening and is now planning on discharging home on Hospice. His home O2 and hospital bed are being coordinated by Hospice through [facility], delivery will be on tomorrow per [facility] at [facility], no way to get a sooner delivery, discharge is delayed. Goal is to get Jimmy home COTY once his O2 is delivered per Hospitalist. He will need an O2 tank at time of discharge or will need to transport via EMS. Hospice admission is arranged for Monday. A: Jimmy is a 78 year old male admitted to [facility] on 09/29/23 with acute on chronic hypercapnic respiratory failure. P: Jimmy will discharge home with a plan to admit to hospice services on Monday. DME: O2 and hospital bed are being coordinated by hospice (DME co: [employer]) and will be delivered on 10/05/23. Transportation is dependent on patients mobility and whether or not he is provided with a Portable tank to transport home (per RT needs to be arranged by Hospice.) CM will follow and continue to support Quang and his family during this difficult time. SDOH(Care Management) Screening Will the Patient Participate in the Screening?: Yes Do you worry about having a steady place to live?: yes Problems where you live: inadequate lighting In the past 12 months, have you had to go without electric, gas, oil or water in your home?: no Have you or anyone in your house had to go without enough food to eat?: no Has lack of transportation kept you from medical appointments or from doing things needed for daily living?: yes Has anyone in your support network made you feel unsafe for any reason?: yes Social Determinants of Health Comments(SDOH Details): medical appts, home health help and palliative consults and hospice care in future Health Related Social Needs Health related social needs: inadequate housing(Z59.1), housing instability, housed, with risk of homelessness(Z59.811), transportation insecurity(Z59.82) and problem related to primary support group(Z63.9) Health related social needs details: difficulty getting to appts
--- NOTE | 2023-10-04 15:11 | PT.INTREAT ---
PT Notes Visit Reasons: Acute on chronic hypercapnic respiratory failure Date: 10/03/23 PRECAUTIONS: Standard, fall risk SUBJECTIVE: Pt approached multiple times in the morning but pt was not able to participate due to pt not able to stay awake, pt was alert and awake later in the afternoon and agreed to partcipapting with session. OBJECTIVE: 2L O2 support NC? PAIN: none reported VITALS: monitored by nursing Therapeutic Activities [id number]: Direct one-on-one instruction in dynamic activities to improve functional performance. ?? BED MOBILITY/TRANSFERS? Rolling L/R: supervision Supine-sit: ? supervision? Sit-supine: ? supervision? Sit-stand: ? CGA? Stand-sit: ?CGA? Bed-Chair:?CGA ? Chair-bed: CGA Provided skilled cues and instruction on performance and technique throughout. Gait Training 00211: Direct one-on-one instruction and skilled instruction in: Employing an assistive device Modified weight-bearing status Movement sequencing Turning and movement with proper form Provided verbal cues for equipment management and technique Provided instruction in gait pattern Patient education regarding pacing and breathing techniques to maximize activity tolerance? GAIT? Assistive Device: ?FWW ? Weight bearing: FWB Assist: CGA ? Distance:??150' with standing rest break every 50' ? Deviation: Slow macy speed, low step height, short step length? ASSESSMENT:?Pt taking longer to recover from SOB with 4L 02 support, pt requiring long standing rest break every 20' to complete 150' stebbins, pt happy he was able to finish the entire loop. PLAN: possible DC tomorrow with services from home health hospice. Treatment code: [id number], [id number] 45mins (2:25-3:10pm)
--- NOTE | 2023-10-04 15:29 | W.PM.PROGNOT ---
Date of Service Date of service: 10/04/23 Time of Service: 15:29 Assessment and Plan Assessment and plan (1) Acute exacerbation of chronic obstructive pulmonary disease (COPD): Status: Acute Assessment and plan: continue Symbicort, and Incruse Ellipta, Duoneb on prn basis, encourage use of acapella, continue azithromycin for antiinflammatory effect and empiric treatment of acute bronchitis, continue prednisone; encourage him to get out of bed/ambulate; alpha AT level is pending. Per CM, patient desires to return home on hospice. We delayed his discharge yesterday to accomodate home health and hospice and now they are delaying his discharge again today as they say that hospice can not get in to see him until Monday although they are now saying that they can get oxygen in to his home tomorrow. (2) Acute on chronic respiratory failure with hypoxia and hypercapnia: Status: Acute (3) Underweight: Status: Acute Assessment and plan: I have added protein supplements, MVS Subjective Subjective Interval history since last seen: Mr Baeza has no acute complaints. Feels tired as he did not sleep well last night. Minimal cough, no sputum. Not dyspneic at rest. He has opted to go home on hospice. We delayed Exam Narrative Exam Narrative: Jimmy is alert and oriented today, not somnolent like yesterday He is in no acute distress, respirations nonlabored Lungs: diffuseely diminished breath sounds Heart: regular Abdomen: scaphoid, nontender Extremities: no edema. Objective Last Vital Signs Temp 36.1 C L 10/04/23 07:55 Pulse 79 10/04/23 07:55 Resp 18 10/04/23 07:55 BP 119/70 10/04/23 07:55 Pulse Ox 100 10/04/23 07:55 Laboratory Results - last 24 hr 10/01/23 10/02/23 10/03/23 10:24 10:50 17:59 VBG pH 7.41 VBG pCO2 65 H* VBG pO2 43 VBG HCO3 41 H VBG Total CO2 36 H VBG O2 Saturation 81 VBG Base Excess 17 H [id number] 163 Ur Strep pneumoniae Ag Negative Time Spent with Patient Time Spent with Patient: <25 minutes Time was spent: preparing to see the patient(eg.review tests), referring, communicating with other health caregivers non medical (nursing and care management), counseling the patient and care coordination
[2023-10-04 15:37] VITALS: BP 142/63; PULSE 94; RESP 15; TEMP 36.4; O2SAT 96
--- NOTE | 2023-10-04 17:19 | CHAPLAIN ---
I visited with Jimmy and his Myesha this afternoon. The current plan is for Jimmy to return to their home in [facility] in the next day or two and be admitted to hospice. 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 Myesha explained that their books are directed at a niche market. They're sold on [employer]. Myesha is from here. Jimmy is from [place] but has lived here for 30 years. Jimmy said they have lived a very quiet life in their home. Being here is the first time he's been off his property since last December, he said. We talked about his writing, and what motivates writers. I gave him a prayer shawl. I will continue to visit.
[2023-10-04 17:37] LABS: Mycoplasma Pneumoniae PCR Negative (Negative); Specimen source NASOPHARYNGEAL
[2023-10-04] MEDS: LORazepam 0.5 MG TAB PO (18:46)
[2023-10-04 21:09] VITALS: BP 136/74; PULSE 88; RESP 22; TEMP 36.6; O2SAT 95
[2023-10-04] MEDS: Acetaminophen 325 MG TAB PO (21:27)
[2023-10-04 23:17] VITALS: BP 136/75; PULSE 80; RESP 18; TEMP 36.5; O2SAT 90
[2023-10-05] MEDS: LORazepam 0.5 MG TAB PO ×2 (03:17→08:54)
[2023-10-05 07:24] VITALS: BP 142/71; PULSE 84; RESP 16; TEMP 35.9; O2SAT 96
[2023-10-05] MEDS: Budesonide/Formoterol 160/4.5 6 GM 60 PUFF INH IH (08:31)
[2023-10-05] MEDS: Umeclidinium 7 CAP INHALER IH (08:32)
[2023-10-05] MEDS: Enoxaparin 30 MG/0.3 ML SYR SC (08:54)
[2023-10-05] MEDS: Protein Nutritional Supplement 16 GM 1 OUNCE PACKET PO (08:54)
[2023-10-05] MEDS: guaiFENesin 600 MG TABCR PO (08:54)
[2023-10-05] MEDS: Normal Saline Flush 10 ML SYR IVP (08:54)
[2023-10-05] MEDS: Multivitamin TAB 1 TAB PO (08:54)
[2023-10-05] MEDS: predniSONE 20 MG TAB 40 MG PO (08:54)
[2023-10-05] MEDS: Azithromycin 250 MG TAB PO (08:54)
[2023-10-05] MEDS: Dicyclomine 10 MG CAP PO ×2 (08:55→11:32)
[2023-10-05] MEDS: Pantoprazole 40 MG TABCR PO (08:55)
--- NOTE | 2023-10-05 10:04 | PDOC.CMDIS ---
Date of service: 10/05/23 Time of Service: 10:04 LACE Index Scoring Tool Questions: Length of Stay (in days): 4 - 6 Was the patient admitted via the E.D.?: Yes Comorbidities: Chronic Pulmonary Disease E.D. Visits: 1 Answers: Total Score: 10 Risk of Readmission: High Risk Care Management Discharge Plan Reason for Hospitalization: acute on chronic hypercapnic respiratory failure Discharge Plan: Jimmy will discharge home with a plan to admit to Hospice with wrap around Services tomorrow. He will transport via EMS. CM confirmed that DME was delivered by [employer], prior to his discharge. Patient/Family Education Needs: Review discharge instructions, limitations, medications and plan to follow up with Hospices services and community providers. Discuss ask me three. Services Needed at Discharge: DME Agency ([facility]: New home O2 and Hospital bed being delivered today, coordinated by Hospice), Home Health Care Services ([facility]) and Transportation ([facility], coordinated by CM) SDOH Health Related Social Needs: Health related social needs inadequate housing, risk of homeless, transpo insecurity, personal safety Health related social needs details difficulty getting to appts Health related social needs: inadequate housing(Z59.1), housing instability, housed, with risk of homelessness(Z59.811), transportation insecurity(Z59.82) and problem related to primary support group(Z63.9) Health related social needs details: difficulty getting to appts Referrals and interventions: home health
--- NOTE | 2023-10-05 10:08 | W.PM.DS.N ---
Date of service: 10/05/23 Time of Service: 10:08 DS: Diagnosis Discharge Diagnosis (1) Acute exacerbation of chronic obstructive pulmonary disease (COPD): Status: Acute (2) Acute on chronic respiratory failure with hypoxia and hypercapnia: Status: Acute (3) Underweight: Status: Acute Discharge Plan Disposition Patient Disposition: Home W/Hospice Services Condition: Deteriorating Discharge Details Reason For Visit: Acute on chronic hypercapnic respiratory failure Admit Date/Time: 09/29/23 18:44 Admit Provider: Olu Saldaña Attending Provider: Olu Saldaña Primary Care Provider: DOROTHY DE OLIVEIRA Hospital Course Hospital Course: The patient, a 78-year-old male with a history of severe COPD, presented to the emergency department with complaints of worsening shortness of breath. According to the patient and his , he had been in his usual state of health until a few days ago when he began experiencing progressively worsening shortness of breath despite using his home inhalers and nebulizer treatments. He denied lightheadedness, dizziness, chest pain, recent fevers, changes in sputum, nausea, vomiting, or diarrhea. Upon presentation to the emergency department, the patient was in severe respiratory distress with a respiratory rate in the 50s, oxygen saturation in the low 70s, and a heart rate in the 120s. Arterial blood gas analysis revealed significant acute on chronic respiratory acidosis with a pH of 7.31, CO2 of 75, and bicarbonate of 37. The patient was promptly placed on BiPAP for respiratory support. Additionally, he received multiple nebulizer treatments, 125 mg of IV Solu-Medrol, IV magnesium, and Ativan, which significantly improved his respiratory rate. A chest x-ray showed possible bilateral lower lobe infiltrates, although procalcitonin was negative. The emergency room physician administered IV doxycycline. The patient was diagnosed with acute on chronic hypercapnic hypoxic respiratory failure secondary to an acute exacerbation of COPD. Given the severity of his presentation and the need for ongoing management, the patient was admitted to the hospital for further management of his acute exacerbation of COPD. Treatment included continued respiratory support with BiPAP, bronchodilators, corticosteroids, and antibiotics as indicated. Discussion with Mr. Baeza and his family regarding home hospice care, ensured their understanding and addressed any concerns or questions they had. Mr Baeza does have capacity for decision making. The hospitalist team coordinated with the hospice team to arrange for Mr. Baeza's transition home, with oxygen and nebulizer, to ensure continuity of care and support. Home Meds and New Rx's Prescriptions: New azithromycin 250 mg Tablet 250 mg PO DAILY Qty: 1 0RF guaifenesin [Mucus Relief ER] 600 mg Tablet Extended Release 12hr 600 mg PO BID Qty: 0 0RF prednisone 10 mg tablet See Taper PO DIRECTED Qty: 40 0RF Taper: Prednisone 10mg taper 40 mg Daily for 5 Days and 0 Hour 30 mg Daily for 3 Days and 0 Hour 20 mg Daily for 3 Days and 0 Hour 10 mg Daily for 3 Days and 0 Hour 5 mg Daily for 3 Days and 0 Hour Rx Instructions: see taper instructions levalbuterol HCl 0.63 mg/3 mL solution for nebulization 0.63 mg inhalation Q6H PRNQty: 90 0RF (DME) nebulizer and compressor Device See Rx Instructions .Route Qty: 1 0RF Rx Instructions: As directed Continued fluticasone propion-salmeterol [Advair Diskus] 250-50 mcg/dose blister with device 1 inh inhalation BID Incruse Ellipta 62.5 mcg/actuation blister with device 1 inh inhalation DAILY levalbuterol tartrate [Xopenex HFA] 45 mcg/actuation HFA aerosol inhaler 2 inh inhalation Q6H (DME) Aerochamber MV Spacer See Rx Instructions .ROUTE Rx Instructions: As directed acetaminophen 650 mg suppository 650 mg AR Q6H PRN (Reason: fever, mild pain) Qty: 6 0RF Rx Instructions: Hospice Patient hyoscyamine sulfate 0.125 mg tablet,disintegrating 0.125 - 0.25 mg PO Q4H PRN (Reason: secretions) Qty: 24 0RF Rx Instructions: Hospice Patient haloperidol lactate 2 mg/mL concentrate 1 mg PO Q6H PRN (Reason: agitation) Qty: 15 0RF Rx Instructions: Hospice Patient morphine concentrate 100 mg/5 mL (20 mg/mL) solution 5 - 20 mg PO Q1-4H MDD 5 mL PRN (Reason: moderate to severe pain or shortness of breath) Qty: 30 0RF Rx Instructions: Hospice Patient prochlorperazine maleate 10 mg tablet 10 mg PO Q6H PRN (Reason: nausea and vomiting) Qty: 6 0RF Rx Instructions: Hospice Patient bisacodyl [Dulcolax (bisacodyl)] 10 mg suppository 10 mg AR daily PRN (Reason: constipation) Qty: 2 0RF Rx Instructions: Hospice Patient Insert 1 supp AR Daily PRN constipation (no BM in 3 days) lorazepam 1 mg tablet 1 mg PO Q4H PRN (Reason: anxiety, BRADSHAW or nausea) Qty: 6 5RF Rx Instructions: Hospice Patient Discharge Instructions Instructions: Levalbuterol (By breathing), Hospice Care (GEN), How to Use a Nebulizer (DC) Additional Instructions: Take last dose of antibiotic, azithromycin, tomorrow. Continue other medications. Follow instructions from hospice provider. Stand Alone Forms: Nursing Discharge Form Activity:: Activity as Tolerated Equipment/Supplies:: Oxygen (L/min Below) Diet:: As Tolerated Discharge Orders Discharge Orders: Discharge Order (Routine); Ordered 10/05/23 Ordered By: Mary Comer DS: Summary Time Spent with Patient providing and/or coordinating discharge services: Greater than 30 minutes Status at Discharge Functional status at discharge: bed bound Overall status at discharge: patient is not back to baseline Mental Status: mental status grossly normal Speech and Movement: speech and movement normal Mood: congruent mood Affect: normal affect Quality:SDOH Health Related Social Needs: Health related social needs inadequate housing, risk of homeless, transpo insecurity, personal safety Health related social needs details difficulty getting to [facility] Health related social needs details: difficulty getting to [facility] Referrals and interventions: home health Exam Narrative Exam Narrative: Gen: mild respiratory distress, cachectic HENT: PERRL Chest: Mild respiratory distress, sunken chest, distant auscultation bilaterally, no crackles or wheezes, normal inspiratory effort Heart: regular rate and rhythym, no murmurs, rubs or gallops Abdomen: Scafoid soft, non tender Extremities: No clubbing, edema, cyanosis, rashes Neuro: AAOx3 , non focal Psych: cooperative, appropriate mental affect Psych Mental Status: mental status grossly normal Speech and Movement: speech and movement normal Mood: congruent mood Affect: normal affect DS: Data Vitals/I&O Vitals and I&O: Vital Signs Temperature 35.9 C L 10/05/23 07:24 Temperature Source Tympanic 10/05/23 07:24 Pulse 84 10/05/23 07:24 Pulse Rhythm Regular 10/05/23 09:02 Pulse 85 10/02/23 11:44 Respiratory Rate 16 10/05/23 07:24 Respiratory Effort Non-Labored, Incrsd Work of Breathing 10/05/23 09:02 Respiratory Depth Shallow 10/05/23 09:02 Respiratory Pattern Normal 10/05/23 09:02 Blood Pressure 142/71 H 10/05/23 07:24 Blood Pressure Mean 117 10/02/23 11:44 Blood Pressure Position Supine 10/01/23 08:25 Pulse Oximetry 96 10/05/23 07:24 Respiratory End-tidal CO2 28 09/29/23 16:41 Oxygen Delivery Method Nasal Cannula 10/05/23 07:24 Oxygen Flow Rate 2 10/05/23 07:24 Fraction of Inspired Oxygen (FIO2) 24 10/02/23 05:34 Pain Level 2 10/05/23 08:58 Comment BP called over radio 10/05/23 07:24 Comment BP with BiPap on 10/02/23 05:53 Intake & Output 10/04/23 10/04/23 10/05/23 11:59 23:59 11:59 Intake Total 150 / 450 300 / 450 200 / 200 Output Total 400 / 400 Balance -250 / 50 300 / 50 200 / 200 Intake: Oral 150 / 450 300 / 450 200 / 200 Output: Urine 400 / 400 Other: Urine Color Light Carla Yellow Urine Appearance Cloudy Comment 200 in cath and the ashley was wet Voiding Methods Diaper Incontinent Diaper Incontinent Incontinent Data Completed and Pending Labs on day of discharge: Labs from last 24 hours 10/01/23 10:24 M. pneumoniae Source NASOPHARYNGEAL M. pneumoniae (PCR) Negative PFSH All Active Problems (Updated 10/03/23 @ 15:19 by Shellie Serrano MD) DNR (do not resuscitate) (Acute) Palliative care patient (Acute) Advanced care planning/counseling discussion (Acute) Pulmonary cachexia due to COPD (Acute) Acute on chronic respiratory failure with hypoxia and hypercapnia (Acute) Acute exacerbation of chronic obstructive pulmonary disease (COPD) (Acute) Adrenal adenoma (Acute) COPD (chronic obstructive pulmonary disease) (Chronic) Sudden hearing loss (Acute) Hypertensive disorder (Chronic) Underweight (Acute) Constipation (Acute) Social History Smoking/Tobacco Use Status: Never Smoking risk assessment performed?: Yes Alcohol Intake: current Alcohol Intake frequency: holidays/special occasions only Substance use type: does not use Housing: house Time Spent with Patient Time Spent with Patient: 45-69 minutes Time was spent: preparing to see the patient(eg.review tests), ordering medications,tests, procedures, referring, communicating with other health lead caregiver, counseling the patient and care coordination
--- NOTE | 2023-10-05 10:51 | RESPIRATORY ---
[facility] [id number]
--- NOTE | 2023-10-05 14:28 | PT.INTREAT ---
PT Notes Visit Reasons: Acute on chronic hypercapnic respiratory failure Inpatient Physical Therapy Treatment Note [facility] Date:10/05/23 SUBJECTIVE: Braxton states that he thinks he may be going home today. He offers no complaints to me today. OBJECTIVE: []? VITALS: ? O2 sat prior to PT 93% on 2L of O2. Post session 92% on 4L of O2. Therapeutic Activities (80199b2)25 min: Direct one-on-one instruction in dynamic activities to improve functional performance. ? BED MOBILITY/TRANSFERS? Rolling L/R:I Supine-sit: S? Sit-supine: S ? Sit-stand: S? Stand-sit:S? Provided skilled cues and instruction on performance and technique throughout. GAIT? Assistive Device: FWW? Weight bearing: full Assist: CGA ? Distance:?approx 200' ? Deviation: very slow macy.? ?4L of O2 ? Therapeutic Exercises (60084l4)20 min: Direct one-on-one instruction in therapeutic exercises to develop strength, endurance, range of motion and flexibility. ? Exercises ?DBE: x5 btwn each LE ex of LAQ x10, seated july x10.? ASSESSMENT:? tolerated session well. Reminders to breath through nose. No safety concerns, no LOB. O2 sats ranged btwn 91%-95% PLAN: pt d/c to home. TREATMENT CODE/TIME: 45 min. [id number], [id number]
== END 2023-10-05 13:36 | disposition hospice, home (50) | DRG 190 ==
LOC: ER 20:04 → ICU 20:36 → MS 10-02 12:41
PROVIDERS: Family Medicine; Admitting Provider Internal Medicine; Emergency Provider Emergency Medicine; PCP Nurse Practitioner Family; Visit Provider Internal Medicine
DX: J44.1 Chronic obstructive pulmonary disease with (acute) exacerbation (principal); J96.21 Acute and chronic respiratory failure with hypoxia; J96.22 Acute and chronic respiratory failure with hypercapnia; Z68.1 Body mass index [BMI] 19.9 or less, adult; E46 Unspecified protein-calorie malnutrition; Z66 Do not resuscitate; Z51.5 Encounter for palliative care; E88.A Wasting disease (syndrome) due to underlying condition; I10 Essential (primary) hypertension; K59.00 Constipation, unspecified
CPT/HCPCS: 00123; 36415; 71250; 80048; 80053; 82805; 84145; 85027; 87040; 87637; 93005; 94640; 96365; 96366; 96368; 96375; 97110; 97116; 97162; 97530; 99222; 99291; 71045; 82103; 83735; 83880; 84484; 85025; 87581; 87899; 93010; 94660; 94664; 94668; 99223; 99231; 99232; 99233; 99239; J1650; J2060; J2270; J2919; J3360; J3475; J7512; J7613; J7614; J7620

== ENCOUNTER → 2023-10-02 09:06 | Outpatient (BNVA) | payer MEDICARE, SELFPAY | PROVIDERS: PCP Nurse Practitioner Family; Referring Provider Nurse Practitioner Family; Visit Provider Student in an Organized Health Care Education/Training Program ==

== ENCOUNTER 2024-12-06 12:17 | Outpatient (REF) | payer MEDICARE, SELFPAY | END 2024-12-06 12:18 | disposition home or self-care (01) | LOC: LBN 12:17 | PROVIDERS: PCP Nurse Practitioner Family; Visit Provider Family Medicine | DX: J44.9 Chronic obstructive pulmonary disease, unspecified (principal); J96.12 Chronic respiratory failure with hypercapnia; I10 Essential (primary) hypertension | CPT/HCPCS: 87086 ==